=== PATIENT | male | born 1975 | race Caucasian/White ===

== ENCOUNTER 2020-12-26 15:36 | Inpatient (IN) | payer OTHER, SELFPAY ==
[2020-12-26] VITALS (9 sets, daily range): BP systolic 118–156; BP diastolic 75–98; PULSE 70–98; RESP 16–18; TEMP 36.6–36.9; O2SAT 90–98; BMI 36.4; BMI 34.1
--- NOTE | 2020-12-26 | ECG_ITS ---
APPROVED REPORT Exam: Resting ECG HR:85 bpm ECG Measurements Heart Rate 85 AXES WV 154 P 57 QRSd 100 QRS 12 QT 354 T 189 QTc 421 Conclusion Sinus rhythm with occasional premature ventricular complexes Possible Left atrial enlargement Possible Inferior infarct, age undetermined Possible Anterior infarct, age undetermined T wave abnormality, consider lateral ischemia Abnormal ECG Electronically signed by : Bakari Carl, 12/27/2020 22:13:15
--- NOTE | 2020-12-26 15:41 | XR_ITS ---
PROCEDURE INFORMATION: Exam: XR Chest Exam date and time: 12/26/2020 3:41 PM Age: 45 years old Clinical indication: Chest wall pain; Additional info: Chest pain TECHNIQUE: Imaging protocol: XR of the chest. Views: 1 view. COMPARISON: No relevant prior studies available. FINDINGS: Lungs: Old faint infiltrate at the right lung base. Pleural spaces: Unremarkable. No pleural effusion. No pneumothorax. Heart/Mediastinum: Mild cardiac enlargement. Bones/joints: Unremarkable. IMPRESSION: Cardiomegaly and faint right lung base infiltrate.
--- NOTE | 2020-12-26 15:42 | CT_ITS ---
PROCEDURE INFORMATION: Exam: CT Head Without Contrast Exam date and time: 12/26/2020 3:42 PM Age: 45 years old Clinical indication: Syncope and collapse TECHNIQUE: Imaging protocol: Computed tomography of the head without contrast. Radiation optimization: All CT scans at this facility use at least one of these dose optimization techniques: automated exposure control; mA and/or kV adjustment per patient size (includes targeted exams where dose is matched to clinical indication); or iterative reconstruction. COMPARISON: No relevant prior studies available. FINDINGS: Brain: Normal. No hemorrhage. Unremarkable white matter. No mass effect. Cerebral ventricles: No ventriculomegaly. Paranasal sinuses: Visualized sinuses are unremarkable. No fluid levels. Mastoid air cells: Visualized mastoid air cells are well aerated. Bones/joints: Unremarkable. No acute fracture. Soft tissues: Unremarkable. IMPRESSION: No acute intracranial abnormality.
--- NOTE | 2020-12-26 15:49 | HMH.EDGENADL ---
ED Disposition Clinical Impression: Abnormal electrocardiogram, Unstable angina Syncope Qualifiers: Syncope type: unspecified Qualified Code(s): R55 - Syncope and collapse Disposition: Admitted as Observation Condition on Discharge: Good Referrals: Provider,Referral, [Primary Care Provider] - - Critical Care Critical Care Time: No Attestation: On 12/26/20, the high probability of a clinically significant, sudden or life threatening deterioration of the following system(s) required my full and direct attention, intervention and personal management. The time I documented below is in addition to time spent performing reported procedures but includes the following listed in this critical care notation. Medical Decision Making - Young Inquiry Pt receiving controlled substance: No Vital Signs: 12/26/20 15:37 12/26/20 16:18 12/26/20 16:30 Temperature 98.5 F Temperature Source Oral Pulse Rate 86 92 H Pulse Rate [Radial] 98 H Respiratory Rate 18 18 18 Blood Pressure 143/98 H 133/89 Blood Pressure [Right Arm] 152/94 H Blood Pressure Mean 112 103 Blood Pressure Mean [Right Arm] 113 Blood Pressure Position [Right Arm] Sitting 02 Sat by Pulse Oximetry 98 94 L 94 L Oxygen Delivery Method Room Air - Lab Data Lab Results 12/26/20 15:35: WBC 8.9, RBC 4.89, Hgb 16.2, Hct 46.9, MCV 96.0 H, MCH 33.2 H, MCHC 34.6, RDW 13.3, Plt Count 211, MPV 9.0, Neut % (Auto) 67.5, Lymph % (Auto) 23.9, [place] % (Auto) 6.1, Eos % (Auto) 1.4, Baso % (Auto) 1.1, Neut # (Auto) 6.0, Lymph # (Auto) 2.1, [place] # (Auto) 0.5, Eos # (Auto) 0.1, Baso # (Auto) 0.1 12/26/20 15:35: Sodium 138, Potassium 3.8, Chloride 106, Carbon Dioxide 27, Anion Gap 8.8, BUN 11, Creatinine 0.90, Estimated Creat Clear 147, Estimated GFR 90, Est GFR ( Amer) 109, Glucose 116 H, Calcium 9.0, Troponin I 0.05 H Result diagrams: 12/26/20 15:35 12/26/20 15:35 Orders (Tests/Meds): ED MEDICATIONS Generic Name Dose Route Start Last Admin Trade Name Freq PRN Reason Stop Dose Admin Enoxaparin Sodium 100 mg 12/26/20 16:15 12/26/20 16:12 Enoxaparin 100mg/Ml Syringe SQ 01/25/21 16:14 100 mg Q12H PERRI Administration Nitroglycerin/Dextrose 250 mls @ 1.5 mls/hr 12/26/20 16:15 12/26/20 16:12 Nitroglycerin 50mg/250ml D5w IV 01/25/21 16:14 5 mcg/min .Q24H PERRI 1.5 mls/hr Administration Protocol 5 MCG/MIN Metoprolol Tartrate 25 mg 12/26/20 16:15 12/26/20 16:15 Metoprolol Tartrate 50mg Tablet PO 01/25/21 16:14 25 mg Q6H PERRI Administration Discontinued Medications Generic Name Dose Route Start Last Admin Trade Name Freq PRN Reason Stop Dose Admin Aspirin 324 mg 12/26/20 16:06 12/26/20 16:14 Aspirin 81mg Chewable Tablet PO 12/26/20 16:07 324 mg ONCE ONE Administration Clopidogrel Bisulfate 300 mg 12/26/20 16:06 12/26/20 16:11 Clopidogrel 300mg Tablet PO 12/26/20 16:07 300 mg ONCE ONE Administration ORDERS Category Date Time Status Consult to Cardiology [CONS] Routine Cons 12/26/20 16:07 Active Rapid PCR Covid and Flu A/B Stat Lab 12/26/20 17:06 Ordered Troponin I Q3H Lab 12/26/20 18:45 Ordered Troponin I Q3H Lab 12/26/20 21:45 Ordered - Radiology Data #1 Image(s): Chest Image Reviewed: Yes I have reviewed radiologist's interpretation PROCEDURE INFORMATION: Exam: XR Chest Exam date and time: 12/26/2020 3:41 PM Age: 45 years old Clinical indication: Chest wall pain; Additional info: Chest pain TECHNIQUE: Imaging protocol: XR of the chest. Views: 1 view. COMPARISON: No relevant prior studies available. FINDINGS: Lungs: Old faint infiltrate at the right lung base. Pleural spaces: Unremarkable. No pleural effusion. No pneumothorax. Heart/Mediastinum: Mild cardiac enlargement. Bones/joints: Unremarkable. IMPRESSION: Cardiomegaly and faint right lung base infiltrate.
[2020-12-26 16:08] LABS: Basophils # 0.1 K/mm3 (0-0.2); Basophils % 1.1 % (0.1-2.0); Eosinophils # 0.1 K/mm3 (0.0-0.4); Eosinophils % 1.4 % (0.1-12.0); Hematocrit 46.9 % (42.0-52.0); Hemoglobin 16.2 g/dL (14.1-18.0); Lymphocytes # 2.1 K/mm3 (0.7-4.5); Lymphocytes % 23.9 % (10-50); Mean Corpuscular HGB Conc 34.6 g/dL (31.8-35.4); Mean Corpuscular Hemoglobin 33.2 pg (27.0-31.2); Monocytes # 0.5 K/mm3 (0.1-1.0); Monocytes % 6.1 % (1.7-9.3); Neutrophils % 67.5 % (37.0-80.0); Platelet Count 211 K/mm3 (142-424); Red Blood Count 4.89 M/mm3 (4.60-6.20); Red Cell Distribution Width 13.3 % (11.5-17.5); White Blood Count 8.9 K/mm3 (4.8-10.8)
--- NOTE | 2020-12-26 16:13 | PC.NURSE ---
I TOOK PATIENT UP FOR A CT HEAD WO AND I WAS WHEELING THE PATIENT BACK DOWN TO THE ER, EDIN MCKINNEY FROM ER CALLED AND SAID WANTS TO CANCEL CT HEAD, BUT I HAD ALREADY SCANNED PATIENT
--- NOTE | 2020-12-26 16:20 | PC.NURSE ---
Dr Schuster spoke with Dr Mckinney.
--- NOTE | 2020-12-26 16:22 | PC.NURSE ---
Dr Catherine scott
[2020-12-26 16:26] LABS: Chloride 106 mmol/L (98-107); Sodium 138 mmol/L (136-145)
[2020-12-26 16:27] LABS: Potassium 3.8 mmoL/L (3.5-5.1)
[2020-12-26 16:29] LABS: Blood Urea Nitrogen 11 mg/dl (9-20); Creatinine Clearance Estimated 147 mL/min (50-200); Estimated Glomerular Filt Rate 90 ml/min (>60); GFR (African American) 109 ML/MIN (>60)
[2020-12-26 16:30] LABS: Anion Gap 8.8 mEq/L (5-15); Carbon Dioxide 27 mmol/L (22.0-30.0); Glucose 116 mg/dl (74-100)
[2020-12-26 16:42] LABS: Troponin I 0.05 ng/ml (0.00-0.034)
--- NOTE | 2020-12-26 16:57 | PC.NURSE ---
Dr Chris scott
[2020-12-26 17:21] LABS: Coronavirus 19, PCR Not Detected (NotDetected); Influenza A, PCR Not Detected (NotDetected); Influenza B, PCR Not Detected (NotDetected)
--- NOTE | 2020-12-26 19:16 | PC.NURSE ---
Notified RN that is receiving pt, Pat Brenner, that pt's swab has been resulted and ready for transfer to [facility].
[2020-12-26 19:31] LABS: Troponin I 0.06 ng/ml (0.00-0.034)
--- NOTE | 2020-12-26 19:33 | PC.NURSE ---
PT ARRIVED TO FLOOR VIA W/C FROM ED W/STAFF AT 1928
[2020-12-26 22:15] LABS: Troponin I 0.05 ng/ml (0.00-0.034)
--- NOTE | 2020-12-26 23:35 | PC.NURSE ---
2032- TITRATED NITRO GTT TO 5 MCG/MIN D/T SBP <160. NO CP OR SOA REPORTED. 2099- PT. PLACED ON 2L NC D/T O2 SAT 86-88% ON RA. PT. CURRENTLY 94-97% ON 2L NC.
[2020-12-27] VITALS (28 sets, daily range): BP systolic 102–129; BP diastolic 63–91; PULSE 64–80; RESP 16–20; TEMP 36.6–36.9; O2SAT 90–97; BMI 34.2
--- NOTE | 2020-12-27 | IR_ITS ---
APPROVED REPORT Patient Location: Inpatient PROCEDURES Left heart catheterization Left ventriculogram Selective coronary angiogram INDICATION Ejection fraction 30%, Syncope, Informed consent was obtained prior to the procedure. COMPLICATIONS None Estimated Blood Loss: Less than 10 mls TECHNIQUE One percent lidocaine used to anesthetize the right anterior aspect of the wrist. The right radial artery was accessed via the Seldinger technique. A 6 [place] sheath was placed in the right radial artery. 2.5 mg of verapamil, 800 mcg of nitroglycerin, 1mg Lidocaine and 5000 U Heparin were given through the arterial sheath. The trap catheter was also used to perform left heart catheterization, left ventriculogram and selective coronary angiogram. At the end of the procedure the sheath was removed good hemostasis was achieved using Traclet band, patient was transferred to the postop holding area in stable condition. ANGIOGRAPHIC RESULTS The left main artery Normal The left anterior descending artery Has proximal 50% stenosis and then gives rise to a moderate-sized first obtuse marginal artery which has proximal 30% stenosis. A large first septal audio production instructor is widely patent and branches distally. Immediately after the septal audio production instructor the mid LAD is occluded. Only at the apex does the LAD reconstitute however the filling is from a large Kugel collateral from a proximal dominant right coronary artery. There is no mid vessel visualization of the LAD from either antegrade or retrograde angiography/flow The circumflex artery Gives rise to 2 different ramus intermedius vessels. One ramus intermedius is a moderate size vessel and has proximal and mid vessel 40% stenoses. A second ramus intermedius also originates off the left main artery and has a superior and inferior branch both 2.25 mm in diameter. Both vessels have mild 20 and 30% atheromatous plaque. The true circumflex artery is nondominant and patent The right coronary artery Is a dominant vessel and occluded in the proximal segment immediately distal to a large atrial branch. This atrial branch sends a large Kugel collateral over to the distal LAD and provides some retrograde flow suggesting competitive flow from a left to left collateral. Distal to this large atrial branch the right coronary artery is occluded with the distal PDA being collateralized from this proximal right atrial branch and a right to right collateral network as well as the distal vessel being collateralized in a [id number] manner from a large first septal audio production instructor The [place] ventriculogram reveals Dilated ventricle with anterior apical hypokinesis and inferior apical hypokinesis. Estimated ejection fraction 30 to 35% The left ventricular end-diastolic pressure 20 mmHg IMPRESSION Occluded LAD immediately distal to the first diagonal artery and first septal audio production instructor with right to left collateralization from the right atrial branch and Kugel collateral supplying the distal LAD which has some degree of retrograde filling however only the distal LAD was visualized Occluded proximal dominant right coronary artery which fills via right to right collaterals from the proximal right atrial/Kugel collateral branch as well as left to right collaterals from the first septal audio production instructor off the LAD Regional wall motion abnormality with reduced ejection fraction Elevated LVEDP PLAN 1. The patency of the mid LAD cannot be determined at this time. Patient has a severe ischemic cardiomyopathy with an unusual collateral network as described above. Prior to offering coronary artery bypass surgery we need to determine if there is myocardial viability therefore I recommend pa
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
--- NOTE | 2020-12-27 07:46 | HMH.PHAVTE ---
[facility] Pharm[facility] VTE Monitoring - Patient Demographics Admission date: 12/26/20 Report Date: 12/27/20 Time: 07:46 Allergies/Adverse Reactions: Patient Allergies No Known Allergies Allergy (Unverified 05/29/17 15:12) Height: 1.68 m Weight: 96.644 kg Patient Problems: Current Active Problems Syncope (Acute) Abnormal electrocardiogram (Acute) Unstable angina (Acute) - VTE Risk Labs: VTE Related Lab Results Hgb 16.2 g/dL (14.1-18.0) 12/26/20 15:35 Hct 46.9 % (42.0-52.0) 12/26/20 15:35 Plt Count 211 K/mm3 (142-424) 12/26/20 15:35 BUN 11 mg/dl (9-20) 12/26/20 15:35 Creatinine 0.90 mg/dl (0.66-1.25) 12/26/20 15:35 Estimated Creat Clear 147 mL/min (50-200) 12/26/20 15:35 Was VTE Risk Assessment Performed: Yes VTE Score: 1 VTE Risk Level: Very Low Risk - Prophylaxis VTE Prophylaxis Ordered?: Yes Types of VTE Prophylaxis: TEDS Knee High Location of Applied Device: Bilateral Lower Extremeties
--- NOTE | 2020-12-27 07:48 | HMH.PHAINT ---
MEDICATION RECONCILIATION COMPLETED ON PATIENT USING EXTERNAL FILL HISTORY FROM PHARMACY. -GRANT SUAZO, SHREYAD
--- NOTE | 2020-12-27 08:37 | CA_ITS ---
APPROVED REPORT EXAM: Comprehensive 2D, Doppler, and color-flow Echocardiogram Senior Solutions Architect: Thelma Paul RVT Ht: 5 ft 6 in Wt: 213lbs BSA: 2.05 BP: 128/86 mmHg Indications: NSTEMI,CP,SMOKER,SYNCOPE,GERD 2D Dimensions LVOT 2.40 cm (M/F) 1.5-2.5 LA Volume 63.10 mL LA Volume Index 30.78 mL/m2 (M/F) 16-34 M-Mode Dimensions RVDd 2.13 cm (0.9-2.6) LA Diam 4.58 cm (1.9-4.0) LVDd 7.03 cm (3.5-5.7) Ao Diam 2.64 cm (2.0-3.7) LVDs 5.18 cm (3.5-5.7) IVSd 1.08 cm (0.6-1.1) PWd 0.88 cm (0.6-1.1) EF (Teich) 32.00% FS 26.30% EDV (Teich) 257.90 mL TAPSE 2.04 (<1.7) ESV (Teich) 128.40 mL LV Diastology E Decel Time 150.00 (160-240 msec) E/A Ratio 2.1 MED E' 4.40 (< 7 cm/sec) E'/MED E' Ratio 32.52 (>14) LAT E' 4.80 (<10 cm/sec) E/LAT E' Ratio 29.81 (>14) Aortic Valve AI PHT 597.00 ms AO Peak GR. 4.00 mmHg Mitral Valve MV E Max Byron. 143.00 (40-130 cm/s) MV A Velocity 68.00 (40-130 cm/s) E/A Ratio 2.11 MV Decel. Time 150.00 (160-240 ms) MV PHT 44.00 ms Pulmonary Valve PV Peak Velocity 71.00 (50-150 cm/s) Tricuspid Valve TR P. Velocity 281.00 cm/s RAP Estimate 10.00 mmHg RVSP 41.50 mmHg Left Ventricle Left atrium is moderately enlarged, left ventricle is moderately dilated, there is mild concentric left ventricular hypertrophy, there is severely reduced left ventricular systolic function, visually estimated ejection fraction 25%, left ventricle is globally hypokinetic, grade 2 diastolic dysfunction seen with tissue Doppler evidence of raise left atrial pressure. Right Ventricle Right atrium and right ventricle are normal size and contractility. Aortic Valve Aortic valve is minimally thickened and fibrosed, there is no aortic stenosis, there is trace aortic insufficiency. Mitral Valve Mitral valve grossly normal, there is moderate mitral regurgitation. Tricuspid Valve Tricuspid valve grossly normal, there is mild tricuspid regurgitation, tricuspid regurgitation jet velocity is inadequate for calculation of the right ventricular systolic pressure. Pulmonic Valve Pulmonic valve is poorly visualized. Great Vessels Aortic root is normal size. Pericardium No significant pericardial effusion noted. Conclusion 1. Moderately enlarged left atrium, dilated left ventricle, severely reduced left ventricular systolic function, visually estimated ejection fraction approximately 25%, left ventricle is globally hypokinetic, grade 2 diastolic dysfunction seen with tissue Doppler evidence of raise left atrial pressure. 2. Moderate mitral and mild tricuspid regurgitation. 3. Inferior vena cava is normal size with normal inspiratory collapse. 4. No significant pericardial effusion noted. Electronically signed by : Bryno Kidd, 12/27/2020 11:41:51
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
[2020-12-27 10:13] LABS: Alanine Aminotransferase 26 U/L (12-78); Albumin Level 4.1 g/dl (3.5-5.0); Alkaline Phosphatase 78 U/L (38-126); Aspartate Amino Transferase 36 U/L (17-59); Bilirubin,Direct 0.5 mg/dl (0.0-0.4); Bilirubin,Indirect 0.1 mg/dL (0.0-0.9); Bilirubin,Total 0.6 mg/dl (0.2-1.3); Bilirubin,Unconjugated 0.2 mg/dL (0.0-1.1); Chol/HDL Ratio 8.6 (1-3.5); Cholesterol 233 mg/dl (140-200); HDL Cholesterol 27 mg/dl (40-60); Total Protein,Serum 7.5 g/dl (6.3-8.2); Triglycerides 257 mg/dl (30-150); VLDL Cholesterol 51 mg/dL (0-40)
[2020-12-27 10:24] LABS: Direct LDL Cholesterol 152.36 mg/dL (100-129)
--- NOTE | 2020-12-27 13:35 | PC.NURSE ---
late entry: about 1115 patient agitated and stated he wanted to leave ama. educated on risks. asked patient to stay until we could speak with the drJuan about 1150 joselyn at bedside explaining to patient risks of leaving at this time. ordered 2mg ativan once for patient. patient agreeable to stay for heart cath.
--- NOTE | 2020-12-27 15:00 | PC.NURSE ---
verified with cathode builder to NOT restrart the nitro drip
--- NOTE | 2020-12-27 16:05 | PC.NURSE ---
patient has been resting since return from laboratory scientist. no complaints. on 2l room air noted to be about 88-89%. srikanth sarmiento aprn educated patient on findings and need for life vest. verified with her to stop the metoprolol and only do coreg on the patient. radial site no bleeding noted at this time. report given to thiago davis.
--- NOTE | 2020-12-27 18:44 | PC.NURSE ---
room air sats 93% return pt to 2L n/c
[2020-12-28] VITALS (8 sets, daily range): BP systolic 91–111; BP diastolic 55–74; PULSE 58–80; RESP 18–20; TEMP 36.3–36.9; O2SAT 90–95; BMI 33.0
--- NOTE | 2020-12-28 00:33 | PC.NURSE ---
Patient is A&Ox4. No pain reported to RN. Patient was on 2L of oxygen at beginning of shift but was titrated to room air and remained around 92-94%. Patient advanced to cardiac diet and tolerated diet well. Radial cath site dressing is clean, dry and intact. Education about restrictions and care for cath site provided to patient by RN. VSS. NO further concerns voiced to RN.
[2020-12-28 06:34] LABS: Anion Gap 9.5 mEq/L (5-15); Blood Urea Nitrogen 12 mg/dl (9-20); Calcium 8.9 mg/dl (8.4-10.2); Carbon Dioxide 31 mmol/L (22.0-30.0); Chloride 100 mmol/L (98-107); Creatinine Clearance Estimated 120 mL/min (50-200); Estimated Glomerular Filt Rate 80 ml/min (>60); GFR (African American) 97 ML/MIN (>60); Glucose 106 mg/dl (74-100); Potassium 4.5 mmoL/L (3.5-5.1); Sodium 136 mmol/L (136-145)
--- NOTE | 2020-12-28 07:07 | P.PN_ITS ---
Internal Medicine - PN: Subj *Date: 12/28/20 *Time: 07:07 Interval history: Patient underwent left heart catheterization yesterday. Please refer to cardiac cath report for findings. Patient has become a rather complex case and plan is in place for patient to get LifeVest due to cardiomyopathy. He has follow-up appointment already arranged with Dr. Walton at for anticipated cardiac MRI. Patient denies any further chest pain overnight. Exam Vital signs and Labs for Last 24 Hours: Temp Pulse Resp BP Pulse Ox 98.0 F 78 20 111/65 91 L 12/28/20 06:00 12/28/20 06:00 12/28/20 04:00 12/28/20 06:00 12/28/20 06:00 Laboratory Results - last 24 hr 12/27/20 09:44: Total Bilirubin 0.6, Direct Bilirubin 0.5 H, Conjugated Bilirubin 0.0, Indirect Bilirubin 0.1, Unconjugated Bilirubin 0.2, AST 36, ALT 26, Alkaline Phosphatase 78, Total Protein 7.5, Albumin 4.1, Triglycerides 257 H , Cholesterol 233 H, LDL Cholesterol Direct 152.36 H, VLDL Cholesterol 51 H, HDL Cholesterol 27 L, Cholesterol/HDL Ratio 8.6 H 12/28/20 05:51: Sodium 136, Potassium 4.5, Chloride 100, Carbon Dioxide 31 H, Anion Gap 9.5, BUN 12, Creatinine 1.00, Estimated Creat Clear 120, Estimated GFR 80, Est GFR ( Amer) 97, Glucose 106 H, Calcium 8.9 I & O for Last 24 hours: Intake & Output 12/25/20 12/26/20 12/27/20 12/28/20 11:59 11:59 11:59 11:59 Intake Total 0 / 0 Output Total 1650 / 1650 Balance -1650 / -1650 Weight 213 lb 1 oz 205 lb 6 oz - Constitutional no acute distress - *Routine Respiratory Exam Present: CTA bilaterally - *Routine Cardiovascular Exam Present: RRR Assessment and Plan (1) Non-STEMI (non-ST elevated myocardial infarction) Status: Acute Category: Medical Code(s): I21.4 - Non-ST elevation (NSTEMI) myocardial infarction (2) Syncope Status: Acute Qualifiers: Syncope type: unspecified Qualified Code(s): R55 - Syncope and collapse Category: Medical Code(s): R55 - Syncope and collapse (3) Unstable angina Status: Acute Category: Medical Code(s): I20.0 - Unstable angina (4) Elevated troponin Status: Acute Category: Medical Code(s): R77.8 - Other specified abnormalities of plasma proteins (5) Abnormal electrocardiogram Status: Acute Category: Medical Code(s): R94.31 - Abnormal electrocardiogram [ECG] [EKG] (6) Tobacco user Status: Chronic Category: Social Hx Code(s): Z72.0 - Tobacco use (7) SOB (shortness of breath) Status: Acute Category: Medical Code(s): R06.02 - Shortness of breath - Assessment and plan all Dx Assessment and Plan for all problems:: 1. Once patient's LifeVest has been arranged patient may be discharged. Prescriptions have been sent to patient's pharmacy. 2. Follow-up with [facility] in 2 days. Follow-up with Dr. Mckinney's office in 1 week. Follow-up with ct in 2 weeks.
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
--- NOTE | 2020-12-28 13:12 | HMH.PHAINT ---
DISCHARGE MEDICATION COUNSELING COMPLETE. DISCUSSED ADDITION OF SEVERAL MEDICATIONS AND POSSIBLE EFFECTS ON BLOOD PRESSURE. DISCUSSED BRUISING POSSIBILITY WITH ASA. PATIENT AND WERE RECEPTIVE TO INFORMATION PROVIDED BUT ENDORSED NO QUESTIONS AT THIS TIME.
--- NOTE | 2020-12-28 13:40 | PC.NURSE ---
spoke with A Yeyo RUIZ at 1205. LifeVest oracle application consultant has delayed consultation time from 1100 to 1700. Per Elizabeth, Dr Mckinney is ok with the pt being discharged home with the LifeVest oracle application consultant coming to his home at approx 1800 this evening for his fitting. [facility], address and telephone number were verified on the phone with the pt and the rep. dr Perez notified at 1210, notified of changes in plan and that Cardiology was ok with DC. Per Dr Perez, ok to enter the discharge order on his behalf.
== END 2020-12-28 13:25 | disposition home or self-care (01) | DRG 281 ==
LOC: ER 16:57 → 2ND 17:43
PROVIDERS: Internal Medicine; Nurse Practitioner Family; Admitting Provider Family Medicine; Emergency Provider Emergency Medicine; Visit Provider Family Medicine
DX: I21.4 Non-ST elevation (NSTEMI) myocardial infarction (principal); I50.20 Unspecified systolic (congestive) heart failure; I25.110 Atherosclerotic heart disease of native coronary artery with unstable angina pectoris; R55 Syncope and collapse; F17.210 Nicotine dependence, cigarettes, uncomplicated; K21.9 Gastro-esophageal reflux disease without esophagitis; I25.5 Ischemic cardiomyopathy; Z20.822 Contact with and (suspected) exposure to COVID-19
CPT/HCPCS: 36415; 70450; 71045; 80048; 80061; 80076; 84484; 85025; 93005; 93306; 93458; 96374; 96375; 99152; 99284; C1725; C1769; J1644; Q9967; U0003

== ENCOUNTER → 2021-01-03 15:49 | Outpatient (CLI) | payer OTHER, SELFPAY ==
[2021-01-03 18:02] LABS: Chloride 106 mmol/L (98-107); Potassium 4.7 mmoL/L (3.5-5.1); Sodium 141 mmol/L (136-145)
[2021-01-03 18:05] LABS: Anion Gap 11.7 mEq/L (5-15); Blood Urea Nitrogen 14 mg/dl (9-20); Calcium 9.2 mg/dl (8.4-10.2); Carbon Dioxide 28 mmol/L (22.0-30.0); Estimated Glomerular Filt Rate 90 ml/min (>60); GFR (African American) 109 ML/MIN (>60); Glucose 96 mg/dl (74-100)
== END ==
PROVIDERS: Visit Provider Physician Assistant
DX: I25.10 Atherosclerotic heart disease of native coronary artery without angina pectoris (principal); I25.5 Ischemic cardiomyopathy; I50.20 Unspecified systolic (congestive) heart failure
CPT/HCPCS: 36415; 80048

== ENCOUNTER → 2021-01-31 15:15 | Outpatient (CLI) | payer OTHER, SELFPAY | PROVIDERS: PCP Family Medicine; Visit Provider Family Medicine | DX: R40.0 Somnolence; G47.33 Obstructive sleep apnea (adult) (pediatric) | CPT/HCPCS: 95806 ==

== ENCOUNTER → 2021-02-17 08:51 | Outpatient (CLI) | payer OTHER, SELFPAY | PROVIDERS: Visit Provider Thoracic Surgery (Cardiothoracic Vascular Surgery) | DX: Z01.812 Encounter for preprocedural laboratory examination (principal); Z11.52 Encounter for screening for COVID-19; I25.10 Atherosclerotic heart disease of native coronary artery without angina pectoris | CPT/HCPCS: U0003 ==

== ENCOUNTER → 2021-03-24 09:55 | Outpatient (CLI) | payer OTHER, SELFPAY ==
[2021-03-24 10:57] LABS: Anion Gap 10.7 mEq/L (5-15); Blood Urea Nitrogen 9 mg/dl (9-20); Calcium 9.3 mg/dl (8.4-10.2); Carbon Dioxide 31 mmol/L (22.0-30.0); Chloride 103 mmol/L (98-107); Estimated Glomerular Filt Rate 121 ml/min (>60); GFR (African American) 146 ML/MIN (>60); Glucose 147 mg/dl (74-100); Potassium 4.7 mmoL/L (3.5-5.1); Sodium 140 mmol/L (136-145)
== END ==
PROVIDERS: Visit Provider Nurse Practitioner Family
DX: I48.0 Paroxysmal atrial fibrillation (principal); I25.5 Ischemic cardiomyopathy
CPT/HCPCS: 36415; 80048

== ENCOUNTER → 2021-05-24 13:34 | Outpatient (CLI) | payer OTHER, SELFPAY ==
--- NOTE | 2021-05-24 13:35 | CA_ITS ---
APPROVED REPORT EXAM: Comprehensive 2D, Doppler, and color-flow Echocardiogram Metallurgy Laboratory Technician: Prema Pacheco, YANET, RVS Ht: 5 ft 6 in Wt: 219lbs BSA: 2.08 BP: 138/84 mmHg Indications: CM last EF=25-30%, CABG, CAD, AFIB, Lifevest 2D Dimensions Aortic Root 2.83 cm LVOT 4.32 cm (M/F) 1.5-2.5 M-Mode Dimensions RVDd 3.05 cm (0.9-2.6) LA Diam 4.16 cm (1.9-4.0) LVDd 5.87 cm (3.5-5.7) Ao Diam 3.27 cm (2.0-3.7) LVDs 4.50 cm (3.5-5.7) IVSd 1.29 cm (0.6-1.1) PWd 1.29 cm (0.6-1.1) EF (Teich) 46.00% EPSs 1.82 cm FS 23.30% EDV (Teich) 171.20 mL TAPSE 0.94 (<1.7) ESV (Teich) 92.40 mL LV Diastology E Decel Time 240.00 (160-240 msec) E/A Ratio 0.76 MED E' 4.00 (< 7 cm/sec) MED A' 5.60 cm/s E'/MED E' Ratio 22.07 (>14) LAT E' 8.60 (<10 cm/sec) LAT A' 5.40 cm/s E/LAT E' Ratio 10.27 (>14) Aortic Valve LVOT Max 108.00 (70-110 cm/s) LVOT VTI 20.87 cm AoV Peak Byron. 135.00 (50-130 cm/s) AO Peak GR. 7.30 mmHg AO Mean GR. 3.60 (<5 mmHg) AO VTI 27.44 (18-25 cm) ALESHIA (VTI) 11.15 (2.5-4.5 cm2) Mitral Valve MV E Max Byron. 88.00 (40-130 cm/s) MV A Velocity 117.00 (40-130 cm/s) E/A Ratio 0.76 MV Decel. Time 240.00 (160-240 ms) MV Mean Gr. 2.20 (<2mmHg) MV PHT 70.00 ms Pulmonary Valve PV Peak Velocity 112.00 (50-150 cm/s) GA End VMAX 161.00 cm/s Tricuspid Valve TR P. Velocity 162.00 cm/s RAP Estimate 10.00 mmHg RVSP 20.50 mmHg Left Ventricle Left atrium is mildly enlarged, left ventricle is mildly dilated, severe reduced left ventricular systolic function, visually is estimated ejection fraction 30%, left ventricle is globally hypokinetic, there is abnormal septal motion. Grade 1 diastolic dysfunction seen without tissue Doppler evidence of raise left atrial pressure. Right Ventricle Right atrium and right ventricle are normal size and contractility. Aortic Valve Aortic valve is minimally thickened and fibrosed, there is no aortic stenosis or aortic insufficiency. Mitral Valve Mitral valve is grossly normal, there is trace mitral regurgitation. Tricuspid Valve Tricuspid valve grossly normal, there is trace tricuspid regurgitation, tricuspid regurgitation jet velocity is inadequate for calculation of the right ventricular systolic pressure. Pulmonic Valve Pulmonic valve is poorly visualized. Great Vessels Aortic root is normal size. Inferior vena cava is poorly visualized. Pericardium No significant pericardial effusion noted. Conclusion #1. Technically difficult study because of the patient factors and poor acoustic windows. Left atrium is mildly enlarged, left ventricle is mildly dilated, severe reduced left ventricular systolic function, visually estimated ejection fraction 30%, there is abnormal septal motion. Grade 1 diastolic dysfunction seen without tissue Doppler evidence of raise left atrial pressure. #2. Trace mitral and tricuspid regurgitation. #3. No significant pericardial effusion noted. Electronically signed by : Bryon Kidd MD 05/24/2021 19:43:22
== END ==
PROVIDERS: PCP Family Medicine; Visit Provider Nurse Practitioner Family
DX: I50.21 Acute systolic (congestive) heart failure (principal); I48.0 Paroxysmal atrial fibrillation; I25.5 Ischemic cardiomyopathy; I25.810 Atherosclerosis of coronary artery bypass graft(s) without angina pectoris; E78.2 Mixed hyperlipidemia; I51.9 Heart disease, unspecified; R94.31 Abnormal electrocardiogram [ECG] [EKG]; Z72.0 Tobacco use; Z95.1 Presence of aortocoronary bypass graft
CPT/HCPCS: 93306

== ENCOUNTER → 2021-05-31 12:11 | Outpatient (CLI) | payer OTHER, SELFPAY ==
[2021-05-31 12:32] LABS: Basophils # 0.1 K/mm3 (0-0.2); Eosinophils # 0.2 K/mm3 (0.0-0.4); Eosinophils % 2.8 % (0.1-12.0); Hematocrit 47.6 % (42.0-52.0); Hemoglobin 16.4 g/dL (14.1-18.0); Lymphocytes # 1.5 K/mm3 (0.7-4.5); Lymphocytes % 27.6 % (10-50); Mean Corpuscular HGB Conc 34.5 g/dL (31.8-35.4); Mean Corpuscular Volume 98.4 fl (80-94); Mean Platelet Volume 9.2 fl (7.4-10.4); Monocytes # 0.5 K/mm3 (0.1-1.0); Monocytes % 9.1 % (1.7-9.3); Neutrophils # 3.1 K/mm3 (1.8-7.8); Neutrophils % 59.5 % (37.0-80.0); Platelet Count 182 K/mm3 (142-424); Red Blood Count 4.84 M/mm3 (4.60-6.20); Red Cell Distribution Width 12.7 % (11.5-17.5); White Blood Count 5.3 K/mm3 (4.8-10.8)
[2021-05-31 13:12] LABS: Chloride 104 mmol/L (98-107)
[2021-05-31 13:13] LABS: Potassium 4.5 mmoL/L (3.5-5.1); Sodium 140 mmol/L (136-145)
[2021-05-31 13:16] LABS: Anion Gap 11.5 mEq/L (5-15); Blood Urea Nitrogen 14 mg/dl (9-20); Carbon Dioxide 29 mmol/L (22.0-30.0); Estimated Glomerular Filt Rate 103 ml/min (>60); GFR (African American) 125 ML/MIN (>60); Glucose 113 mg/dl (74-100)
== END ==
PROVIDERS: Visit Provider Physician Assistant
DX: Z01.812 Encounter for preprocedural laboratory examination (principal); Z11.52 Encounter for screening for COVID-19; I25.810 Atherosclerosis of coronary artery bypass graft(s) without angina pectoris; I50.21 Acute systolic (congestive) heart failure; I51.9 Heart disease, unspecified; I25.5 Ischemic cardiomyopathy; Z95.1 Presence of aortocoronary bypass graft
CPT/HCPCS: 36415; 80048; 85025; C9803; U0003; U0005

== ENCOUNTER 2021-06-02 09:20 | Day surgery (SDC) | payer OTHER, SELFPAY ==
--- NOTE | 2021-06-02 | IR_ITS ---
APPROVED REPORT Patient Location: Outpatient Automotive Technician: DEMI Borrero RT (R) PROCEDURES 1. Pocket formation for AICD. 2. Placement of atrial sensing and pacing coil into the right atrial appendage. 3. Placement of a ventricular sensing, pacing and shocking coil in the right ventricular apex. 4. Permanent AICD placement. INDICATION Systolic Congestive Heart Failure, ejection < 35%, [place] Heart Assoication Class 3 Congestive Heart Failure Informed consent was obtained prior to the procedure. COMPLICATIONS None Estimated Blood Loss: Less than 10 mls TECHNIQUE 1% Lidocaine with epinephrine used to anesthetized the left anterior aspect of the chest. Scalpel was used to make the initial cutaneous incision while electrocautery was used to dissect down tinto the fascia. The fascia was lifted off the pectoralis muscle and digitally manipulated creating a pocket for the defibrillator. The patient was then placed in Trendelenburg position and the subclavian vein was accessed 2 times via the Selinger technique. A 8 Burkinan sheath was placed under fluoroscopic guidance into the subclavian vein. The dilator was removed from the sheath. Using fluoroscopic guidance, the ventricular lead was placed into the right ventricular apex, screwed and secured into place. Electronic interrogation proved acceptable thresholds and voltage within the lead. Using 3-0 silk, the ventricular lead was then secured into place and sheath peeled away. A 6 Burkinan fresh sheath and dilator was placed over the existing wire. Using fluoroscopic guidance, the atrial lead was then placed into the right atrial appendage and screwed and secured in place. Electrical interrogation demonstrated acceptable thresholds and voltage number. The atrial lead was then secured into place using 3-0 silk and sheath peeled away. 1 gram of Ancef was used to flush the pocket. All 3 leads were connected to generator and tested via computer. The defibrillator then secured to the fascia. Monocryl was used to close the subcutaneous layers while su were used to close the cutaneous layer. A pressure dressing was placed and the patient was transferred to the postop holding area in stable condition for postoperative care. INTERROGATION Generator Model number: [address], D233 Generator Serial number: [id number] Atrial lead model number: INGEVITY+ 52CM, 7841 Atrial lead serial number: [id number] P-wave: 2.5mV Threshold: 6000 ohms Right Ventricular lead model number: INGEVITY+ 59CM, 0675 Right Ventricular lead serial number: [id number] R-wave: 20.0mV Threshold: 6500 ohms Pacing Parameters: Mode: DDD Base/Max Track: 60/130 ppm ICD Rate Cutoffs: VT-1: 180 bpm, 5.0 sec., ATP, 41JX6 VT-2: 160 bpm, 10.0 sec., Monitor only VF: 200 bpm, 2.5 sec., Quick convert, 41Jx8 No diaphragmatic stimulation at 10 volts. IMPRESSION 1. Successful pocket formation for AICD. 2. Successful placement of atrial sensing and pacing coil into the right atrial appendage. 3. Successful placement of a ventricular sensing, pacing and shocking coil in the right ventricular apex. 4. Successful permanent AICD placement. PLAN 1. Post op wound care, follow up office visit Electronically signed by : Chester Mckinney MD 06/06/2021 09:49:28
[2021-06-02 09:23] VITALS: BMI 358.9
[2021-06-02 09:32] VITALS: BP 144/81; PULSE 109; PULSE 66; RESP 16; TEMP 36.9; O2SAT 93
[2021-06-02 11:47] VITALS: BP 132/58; PULSE 105; PULSE 54; RESP 16; O2SAT 99
--- NOTE | 2021-06-02 11:53 | XR_ITS ---
PROCEDURE INFORMATION: Exam: XR Chest Exam date and time: 06/02/2021 11:53 AM Age: 46 years old Clinical indication: Device placement; Cardiac pacemaker placement or adjustment; Additional info: Confirm pacemaker/aid placement TECHNIQUE: Imaging protocol: XR of the chest. Views: 1 view. COMPARISON: CR XR CHEST PORTABLE 12/26/2020 3:48 PM FINDINGS: Tubes, catheters and devices: Satisfactory positioning of AICD. Lungs: Trace right basilar airspace disease. Pleural spaces: No pneumothorax or pleural effusion. Heart/Mediastinum: No cardiomegaly. Bones/joints: Unremarkable. IMPRESSION: No postprocedural complication following AICD placement.
[2021-06-02 12:00] VITALS: BP 137/72; PULSE 98; RESP 16; O2SAT 98
[2021-06-02 12:15] VITALS: BP 146/75; PULSE 96; RESP 16; O2SAT 94
[2021-06-02 12:30] VITALS: BP 116/77; PULSE 89; RESP 16; O2SAT 97
[2021-06-02 13:14] VITALS: BP 124/78; PULSE 82; RESP 16; O2SAT 97
== END 2021-06-02 13:25 | disposition home or self-care (01) ==
LOC: CATHLAB 09:21
PROVIDERS: PCP Family Medicine; Visit Provider Internal Medicine
PROC: 0JH608Z Insertion of Defibrillator Generator into Chest Subcutaneous Tissue and Fascia, Open Approach (ICD-10-PCS; CPT 33249; principal; 2021-06-02 07:00)
DX: I50.21 Acute systolic (congestive) heart failure (principal); Z79.01 Long term (current) use of anticoagulants; I25.810 Atherosclerosis of coronary artery bypass graft(s) without angina pectoris; I25.10 Atherosclerotic heart disease of native coronary artery without angina pectoris; I25.5 Ischemic cardiomyopathy; Z87.891 Personal history of nicotine dependence; Z79.899 Other long term (current) drug therapy; I48.91 Unspecified atrial fibrillation
CPT/HCPCS: 33249; 71045; 99152; 99153; C1721; C1895; C1898

== ENCOUNTER → 2022-11-02 07:02 | Outpatient (CLI) | payer OTHER, SELFPAY ==
[2022-11-02 09:48] LABS: Basophils # 0.1 K/mm3 (0-0.2); Eosinophils # 0.2 K/mm3 (0.0-0.4); Eosinophils % 2.4 % (0.1-12.0); Hematocrit 47.1 % (42.0-52.0); Hemoglobin 15.9 g/dL (14.1-18.0); Lymphocytes # 2.5 K/mm3 (0.7-4.5); Lymphocytes % 32.6 % (10-50); Mean Corpuscular HGB Conc 33.8 g/dL (31.8-35.4); Mean Corpuscular Hemoglobin 34.3 pg (27.0-31.2); Mean Corpuscular Volume 101.6 fl (80-94); Monocytes # 0.5 K/mm3 (0.1-1.0); Monocytes % 7.1 % (1.7-9.3); Neutrophils # 4.3 K/mm3 (1.8-7.8); Platelet Count 202 K/mm3 (142-424); Red Blood Count 4.63 M/mm3 (4.60-6.20); Red Cell Distribution Width 13.4 % (11.5-17.5); White Blood Count 7.6 K/mm3 (4.8-10.8)
[2022-11-02 10:10] LABS: Alanine Aminotransferase 33 U/L (12-78); Albumin Level 3.9 g/dl (3.5-5.0); Alkaline Phosphatase 80 U/L (38-126); Anion Gap 17.1 mEq/L (5-15); Aspartate Amino Transferase 32 U/L (17-59); Bilirubin,Indirect 0.3 mg/dL (0.0-0.9); Bilirubin,Total 0.3 mg/dl (0.2-1.3); Bilirubin,Unconjugated 0.4 mg/dL (0.0-1.1); Blood Urea Nitrogen 14 mg/dl (9-20); Carbon Dioxide 23 mmol/L (22.0-30.0); Chloride 103 mmol/L (98-107); Chol/HDL Ratio 9.9 (1-3.5); Cholesterol 188 mg/dl (140-200); Estimated Glomerular Filt Rate 103 ml/min (>60); GFR (African American) 124 ML/MIN (>60); Glucose 171 mg/dl (74-100); HDL Cholesterol 19 mg/dl (40-60); Magnesium 1.9 mg/dl (1.6-2.3); Potassium 4.1 mmoL/L (3.5-5.1); Sodium 139 mmol/L (136-145); Total Protein,Serum 6.9 g/dl (6.3-8.2)
[2022-11-02 10:17] LABS: Triglycerides 450 mg/dl (30-150)
[2022-11-02 10:21] LABS: Direct LDL Cholesterol 105.64 mg/dL (100-129)
[2022-11-02 10:40] LABS: Thyroid Stimulating Hormone 3.15 uIU/mL (0.465-4.68)
[2022-11-02 15:08] LABS: Free T4 (Free Thyroxine) 0.82 ng/dl (0.78-2.19)
== END ==
PROVIDERS: PCP Nurse Practitioner Family; Visit Provider Physician Assistant
DX: I25.810 Atherosclerosis of coronary artery bypass graft(s) without angina pectoris (principal); I25.5 Ischemic cardiomyopathy; I48.0 Paroxysmal atrial fibrillation; I50.22 Chronic systolic (congestive) heart failure; E78.2 Mixed hyperlipidemia; Z95.1 Presence of aortocoronary bypass graft
CPT/HCPCS: 36415; 80048; 80061; 80076; 83735; 84439; 84443; 85025

== ENCOUNTER → 2022-11-20 09:20 | Outpatient (CLI) | payer OTHER, SELFPAY | PROVIDERS: PCP Family Medicine; Visit Provider Physician Assistant | DX: I50.22 Chronic systolic (congestive) heart failure (principal); I25.5 Ischemic cardiomyopathy; I25.810 Atherosclerosis of coronary artery bypass graft(s) without angina pectoris; I48.0 Paroxysmal atrial fibrillation; E78.2 Mixed hyperlipidemia; Z95.1 Presence of aortocoronary bypass graft | CPT/HCPCS: 93306 ==

== ENCOUNTER 2024-10-30 07:46 | Outpatient (CLI) | payer OTHER, SELFPAY ==
--- NOTE | 2024-10-30 | US_ITS ---
FINAL REPORT CLINICAL HISTORY: HTN, HLD, smoker, hx CABG, CAD. Patient states his right lower extremity has been hurting x 1 month. Denies trauma. States with walking the right lower extremity will get tight and feel like a charley horse. FINDINGS: LOWER EXTREMITY SEGMENTAL PRESSURE MEASUREMENTS Pressure indices are as follows: RIGHT LOWER EXTREMITY: Lower thigh: 0.65 Calf: 0.60 Ankle, posterior tibial artery: 0.66 Ankle, dorsalis pedis: 0.62 Toe: 0.49 OZZY: 0.66 LEFT LOWER EXTREMITY: Lower thigh: 0.75 Calf: 0.64 Ankle, posterior tibial artery: 0.75 Ankle, dorsalis pedis: 0.67 Toe: 0.61 OZZY: 0.75 IMPRESSION: Abnormal findings, moderate bilateral PVD. Consider CTA. Based on values, occlusive disease is likely within the iliofemoral distribution. Reviewed, Interpreted and Dictated by Bernardino Ann MD Transcribed by Cathi Santiago Authenticated and [facility]
--- NOTE | 2024-10-30 | CA_ITS ---
FINAL REPORT TECHNIQUE: Compression vieyra scale and Doppler evaluation CLINICAL HISTORY: HTN, HLD, Smoker, hx CABG, CAD. Patient states he's had right leg pain and edema x 1 month. Denies trauma. States when he's walking his right leg will get tight and feel like a charley horse. FINDINGS: Femoral and popliteal veins show normal compressibility and flow. Visualized portion of the calf veins are patent by Doppler exam. IMPRESSION: No evidence of right lower extremity deep venous thrombosis Reviewed, Interpreted and Dictated by Bernardino Ann MD Transcribed by Cathi Santiago Authenticated and [facility]
== END 2024-10-30 23:59 | disposition home or self-care (01) ==
LOC: RT 07:46
PROVIDERS: PCP Family Medicine; Visit Provider Nurse Practitioner
DX: I73.9 Peripheral vascular disease, unspecified (principal); I10 Essential (primary) hypertension; E78.5 Hyperlipidemia, unspecified; F17.200 Nicotine dependence, unspecified, uncomplicated; I25.10 Atherosclerotic heart disease of native coronary artery without angina pectoris; Z95.1 Presence of aortocoronary bypass graft
CPT/HCPCS: 93923; 93971

== ENCOUNTER 2024-11-20 08:00 | Outpatient (CLI) | payer OTHER, SELFPAY ==
--- NOTE | 2024-11-20 08:00 | CA_ITS ---
APPROVED REPORT EXAM: Comprehensive 2D, Doppler, and color-flow Echocardiogram Vacuum Filter Operator: Thelma Paul RVT Ht: 5 ft 6 in Wt: 217lbs BSA: 2.07 BP: 132/76 mmHg Indications: HFrEF,EDEMA,FATIGUE M-Mode Dimensions RVDd 3.39 cm (0.9-2.6) LA Diam 4.24 cm (1.9-4.0) LVDd 6.47 cm (3.5-5.7) LVDs 5.38 cm (3.5-5.7) IVSd 0.78 cm (0.6-1.1) PWd 0.90 cm (0.6-1.1) EF (Teich) 34.40% FS 16.80% EDV (Teich) 213.70 mL ESV (Teich) 140.10 mL LV Diastology E Decel Time 203 (160-240 msec) E/A Ratio 1.0 Aortic Valve ALESHIA Index 1.31 cm2/m2 AoV Peak Byron. 106.0 (50-130 cm/s) AO Peak GR. 4.50 mmHg AO Mean GR. 2.90 (<5 mmHg) AO VTI 25.0 (18-25 cm) ALESHIA (VTI) 2.77 (2.5-4.5 cm2) Mitral Valve MV E Max Byron. 95.0 (40-130 cm/s) MV A Velocity 97.0 (40-130 cm/s) E/A Ratio 0.98 MV PHT 60.0 ms Pulmonary Valve PV Peak Velocity 111.0 (50-150 cm/s) Tricuspid Valve TR P. Velocity 219.00 cm/s RAP Estimate 10.00 mmHg RVSP 29.20 mmHg Left Ventricle The left ventricle is normal size. The left ventricular systolic function is moderately to severely reduced. There is increased LV wall thickness. There is mild to severe global hypokinesis present. The septum is asynchronous. Grade 1 diastolic dysfunction is present. LVEF is 30%. Right Ventricle Right ventricle is mildly dilated. The right ventricular systolic function is normal. Atria The left atrium size is normal. The right atrium size is normal. There is no Doppler evidence of interatrial shunt. Aortic Valve Aortic valve is mildly thickened. Mild aortic regurgitation. There is no aortic valvular stenosis. Mitral Valve The mitral valve is normal in structure. No evidence of mitral valve stenosis. Trace mitral regurgitation. Tricuspid Valve Tricuspid valve is grossly normal in structure and function. Mild tricuspid regurgitation. RVSP is 20-25 mmHg. Pulmonic Valve The pulmonary valve is normal in structure. Trace pulmonic regurgitation. Great Vessels The aortic root is normal in size. IVC is normal in size and collapses >50% with inspiration. Pericardium There is no pericardial effusion. Other Information Study Quality: Fair Conclusion Moderate to severe reduction in LV systolic function (LVEF 30%). Mild RV dilation with normal RV function. Mild AI. Electronically signed by : Tiera Lockett MD 11/26/2024 23:52:23
--- OUTSIDE RECORDS SUMMARY | 2024-11-20 08:02 | XMS_ITS | Encounter Summary ---
Author Organization Healthcare Address [address] [facility] [facility] [place] [address] Care Team Providers Care Dehydration Unit Operator Name Role Phone Bakari Perez MD Primary Care Provider [phone] Chester Mckinney MD Unavailable [phone] Reason for Visit * Reason Comments Med Refill Encounter Details Date Type Department Care Team (Late st Contact Info) Description 02/15/2022 Refill [facility] [address], [address] [place] [address] Ethan Walton MD [address] [facility] [address] [place] [address] Social History Tobacco Use Types Packs/Day Years Used Date Smoking Tobacco: Every Day Cigarettes 1 35 Smokeless Tobacco: Never Comments:trying to quit Alcohol Use Standard Drinks/Week Comments Defer 0 (1 standard drink = 0.6 oz pur e alcohol) Sex and Gender Information Value Date Recorded Sex Assigned at Not on file Legal Sex Male 7:34 PM EDT Gender Identity Not on file Sexual Orientation Not on file Occupation Industry Job Start Date Job End 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 Not on file Not on file Not on file documented as of this encounter Plan of Treatment Not on file documented as of this encounter Visit Diagnoses Not on filedocumented in this encounter Additional Health Concerns Assessment Noted Time A fall risk assessment has been complete d for the patient 03/17/2021 2:14 PM EDT documented as of this encounter Care Teams Dehydration Unit Operator Relationship Specialty Start Date End Date Bakari Perez MD [address] [place] [id number] PCP - General 12/30/20 Chester Mckinney MD [address] [address] Referring Physician 01/14/21 documented as of this encounter
--- OUTSIDE RECORDS SUMMARY | 2024-11-20 08:02 | XMS_ITS | Encounter Summary ---
Author Organization [facility] [address] [facility] [id number] Care Team Providers Care Copy Supervisor Name Role Phone Bakari Perez MD Primary Care Provider [phone] Chester Mckinney MD Unavailable [phone] Reason for Visit * Reason Comments Med Refill Encounter Details Date Type Department Care Team (Late st Contact Info) Description 05/25/2021 Refill [place] [facility] [address], [address] [place] [address] Ethan Walton MD [address] [facility] [address] [place] [address] Social History Tobacco Use Types [...] 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 Not on file Not on file Not on file documented as of this encounter Plan of Treatment Not on file documented as of this encounter Visit Diagnoses Not on filedocumented in this encounter Additional Health Concerns Assessment Noted Time A fall risk assessment has been complete d for the patient 03/17/2021 2:14 PM EDT documented as of this encounter Care Teams Copy Supervisor Relationship Specialty Start Date End Date Bakari Perez MD [address] [place] [id number] PCP - General 12/30/20 Chester Mckinney MD [address] [address] Referring Physician 01/14/21 documented as of this encounter
--- OUTSIDE RECORDS SUMMARY | 2024-11-20 08:03 | XMS_ITS | Clinical Summary ---
Author Organization Healthcare Address [address] [place] [address] Care Team Providers Care Handbook Writer Name Role Phone Bakari Perez MD Primary Care Provider [phone] Chester Mckinney MD Unavailable [phone] Allergies No known active allergies Medications Aspirin Adult Low Strength 81 MG EC tablet Take 81 mg by mouth 1 (one) time each day. 12/28/2020 Active omeprazole (PriLOSEC) [address] capsule Take 40 mg by mouth 1 (one) time each day. 12/27/2020 Active HYDROcodone-acet aminophen (Friendship) 5-325 MG tablet Take 1 tablet by mouth every 4 (four) hours if needed for severe pain. 30 tablet 02/25/2021 Active furosemide (Lasix) 40 MG tablet Take 1 tablet (40 mg total) by mouth 1 (one) time each day for 3 days. 3 tablet 02/26/2021 Active Entresto 24-26 MG tablet Take 1 tablet by mouth 2 (two) times a day. 02/28/2021 Active atorvastatin (Lipitor) 80 MG tablet Take 1 tablet (80 mg total) by mouth every night. 30 tablet 1 03/25/2021 Active apixaban (Eliquis) 5 MG tablet Take 1 tablet (5 mg total) by mouth 2 (two) times a day. 60 tablet 1 03/25/2021 Active sotalol (Betapace) 120 MG tablet Take 1 tablet (120 mg total) by mouth every 12 (twelve) hours. 60 tablet 1 03/25/2021 Active Active Problems Problem Noted Date Diagnosed Date Obesity (BMI 30-39.9) 03/17/2021 Postoperative atrial fibrillation 03/15/2021 Ventricular tachycardia 03/15/2021 Overview (03/15/2021): postop Uses LifeVest defibrillator 03/15/2021 Left ventricular diastolic dysfunction Overview (02/21/2021): Grade 2 per post- CABG intraop COLTEN Acquired dilation of left ventricle of heart Overview (03/15/2021): intra op COLTEN, EF improved 34% --> 46% MICHAEL (obstructive sleep apnea) 02/11/2021 Overview (03/15/2021): Noncompliant with c-pap Coronary artery disease 01/14/2021 Hypertension 01/14/2021 Hyperlipidemia 01/14/2021 GERD (gastroesophageal reflux disease) Ischemic cardiomyopathy 01/14/2021 Resolved Problems Problem Noted Date Diagnosed Date Resolved Date Thrombocytopenia 02/24/2021 02/25/2021 Overview (02/24/2021): likely secondary to post-op status, will continue to monitor Ventricular tachycardia 02/23/202102/09 Overview (02/23/2021): - multiple runs of monomorphic VT sustained to 200 bpm - Given lidocaine bolus 100mg x2 and placed on lidocaine drip Atrial fibrillation 02/23/2021 02/26/20 21 Overview (02/23/2021): - Afib RVR in 150s - given Amiodarone 150 bolus x4 and placed on gtt - given IV metoprolol 5mg x3 Hyponatremia 02/23/2021 02/24/2021 Overview (02/23/2021): Na+ down trending, 129 on 02/23 morning draw, likely due to fluid overload- will diurese and monitor Leukocytosis 02/22/2021 02/25/2021 Overview (02/23/2021): WBC downtrending on POD#2, will continue to monitor Fluid overload 02/22/2021 02/25/2021 Overview (02/23/2021): Likely secondary to post-op status, was net + on POD# 0. 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 Seizure 02/21/2021 02/21/2021 Overview (02/21/2021): Resolved, pt reports hx of seizure ~20 years ago, likely dt meningitis, pt was never on antiepileptic medications, has had no recurrence of seizure Status post coronary artery bypass graft 02/21/2021 03/15/2021 Overview (02/21/2021): 2v CABG performed 02/21 Acute postoperative respiratory insufficiency 02/22/2002/25/2021 Overview (02/24/2021): Maintaining high O2 sats on 2L NC, will continue to wean to RA Low cardiac output syndrome 02/21/2021 02/22/2021 Overview (02/22/2021): Pt no longer requiring ionotropes or pressors on POD#1, PA cath showing CI 2.3- 3.9 Family History Medical History Relation Name Comments Heart disease Maternal Grandfather Hypertension Maternal Grandfather Heart disease Mother Hypertension Mother Relation Name Status Comments Maternal Grandfather Mother Social History Tobacco Use Types Packs/Day Years Used Date Smoking Tobacco: Every Day Cigarettes 1 35 Smokeless Tobacco: Never Tobacco Cessation:Ready to Q uit: Yes; Counseling Given: Yes Comments:trying to quit Alcohol Use Standard Drinks/Week Comments Defer 0 (1 standard drink = 0.6 oz pur e alcohol) Sex and Gender Information Value Date Recorded Sex Assigned at Not on file Legal Sex Male 7:34 PM EDT Gender Identity Not on file Sexual Orientation Not on file Occupation Industry Job Start Date Job End Date 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 Not on file Not on file Not on file Last Filed Vital Signs Vital Sign Reading Time Taken Comments Blood Pressure 131/75 11/20/2022 10:29 AM EDT Pulse 80 11/20/2022 10:29 AM EDT Temperature 36.8 C (98.2 F) 02/25/2021 12:05 PM EDT Respiratory Rate 18 02/25/2021 12:05 PM EDT Oxygen Saturation 98% 03/17/2021 2:14 PM EDT Inhaled Oxygen Concentration - - Weight 102 kg (224 lb) 11/20/2022 10:29 AM EDT Height 167.6 cm (5' 6 ) 11/20/2022 10:29 AM EDT Body Mass Index 36.15 11/20/2022 10:29 AM EDT Plan of Treatment Health Maintenance Due Date Last Done Comments [facility]-Depression Screening 1973 [facility]-Infant/Child/Adol SDOH Screenings 1973 [facility]- SDOH Screenings 1991 [facility]-Adult SDOH Screenings 1991 [facility]-DTaP,Tdap,and Td Vaccine s (1 - Tdap) 1992 [facility]-Hepatitis B Vaccines (1 of 3 - 19+ 3-dose series) 1992 CT Colonography 2018 Colonoscopy 2018 FIT-DNA 2018 FIT 2018 FOBT 2018 Sigmoidoscopy 2018 [facility]-Colorectal Cancer Screening 2018 [facility]-Pneumococcal Vaccine: 50 + Years (1 of 1 - PCV) 2023 [facility]-Zoster Vaccines (1 of 2) 2023 [id number] Vaccine (1 - 20 24-25 season) 2024 [facility]-Influenza Vaccine (Seaso n Ended) 2025 [facility]-Diabetes: Hemoglobin A1C Discontinued 01/20/2021 HPV Vaccines Aged Out No longer eligi ble based on patient's age to complete this topic [facility]-HIB Vaccines Aged Out No longer e ligible based on patient's age to complete this topic [facility]-Hepatitis A Vaccines Aged Out No longer eligible based on patient's age to complete this topic [facility]-IPV Vaccines Aged Out No longer e ligible based on patient's age to complete this topic [facility]-Rotavirus Vaccines Aged Out No lo nger eligible based on patient's age to complete this topic Procedures Procedure Name Priority Date/Time Associated Diagnosis Comments HEMOGLOBIN A1C Routine 01/20/2021 4:39 PM EDT Coronary artery disease involving ute mountain coronary artery of ute mountain heart, unspecified whether angina present from Last 3 Months or Most Recently Relevant to Health Maintenance Results * (ABNORMAL) Hemoglobin A1c (01/20/2021 4:39 PM EDT) Hemoglobin A1c 6.1(H) <5.7 % 01/20/2021 6:54 PM EDT [facility] Blood Venous blood specimen / Unknown Venipuncture / Unknown 01/20/2021 4:39 PM EDT 01/20/2021 4:39 PM EDT Narrative [facility] - 01/20/2021 6:54 PM EDT HA1C Interpretive Data: Diagnosis of Diabetes: Diabetic > or = 6.5% Pre-diabetic 5.7 to 6.4% Non-diabetic < or = 5.6% Glycemic Targets for Type I and Type II Diabetics: Non- Adults <7.0% Adults <6.0% Children and Adolescents <7.5% Source: [place] [employer]. Standards of medical care in diabetes,2017. Diabetes Care.2017:40 (suppl 1):S1-S135. HbA1c assay performed by an ion-exchange chromatography method that is certified traceable to the DCCT. us Ethan Walton MD LAB BLOOD ORDERABLES Final R esult [facility] [address] [place] [phone] from Last 3 Months or Most Recently Relevant to Health Maintenance Insurance [employer] [facility] MEDICAID Advance Directives * Full Code (Latest Code Status on File) Date Activated Date Inactivated Comments 02/21/2021 1:11 PM 02/25/2021 5:53 PM Question Answer Comments Patient has decision-making capacity? Yes Care Teams Handbook Writer Relationship Specialty Start Date End Date Bakari Perez MD [address] [place] [id number] PCP - General 12/30/20 Chester Mckinney MD [address] [facility] [address] [place] [address] Referring Physician 01/14/21
--- NOTE | 2024-11-20 08:45 | CT_ITS ---
FINAL REPORT CLINICAL HISTORY: bnl OZZY,claudication COMPARISON: None FINDINGS: Post contrast axial imaging of the aorta and bilateral lower extremity was obtained and reviewed.This study was performed with techniques to keep radiation doses as low as reasonably achievable (ALARA). Individualized dose reduction techniques using automated exposure control or adjustment of mA and/or kV according to the patient's size were employed. The mesenteric and renal vessels are not well-seen on this examination secondary to centering. There is no evidence of aortic aneurysm. There are moderately advanced vascular calcifications in the distal aorta and iliac vessels. There is a stenosis of less than 50% in the common iliac arteries bilaterally. The internal iliac arteries are patent. Right: Moderate calcified plaque is present in the right common femoral artery. There is extensive calcification in the right superficial femoral artery, with bulky plaque in the region of the adductor canal, producing high-grade stenosis best seen on images #100 through 106 of series 3. There is near complete occlusion of the right popliteal artery secondary to calcified plaque, best seen on images 133 137 of series 3. The anterior and posterior tibial and peroneal arteries are patent to the lower leg. The anterior and posterior tibial arteries are patent to the foot. 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 There is occlusion of the mid and distal superficial femoral artery, with reconstitution at the level of the left popliteal artery. The anterior and posterior tibial and peroneal arteries are patent to the lower leg. The anterior and posterior tibial arteries are patent to the foot. Review of the remaining abdomen and pelvis demonstrates no evidence of mass or adenopathy. The portions of the pancreas, spleen, liver, and kidneys that are visualized appear unremarkable. There is no fluid collection or acute inflammatory process. IMPRESSION: Densely calcified plaque is present in the aorta iliac vessels, with less than 50% bilateral stenosis of the common iliac arteries. There is high-grade stenosis in the distal superficial femoral artery at the level of the adductor canal. There are also dense calcifications in the right popliteal artery with near occlusion. There is extensive left common femoral artery calcification, with mild aneurysmal dilatation up to 12 mm of a short segment. There is occlusion of the mid and distal superficial femoral artery with reconstitution at the level of the left popliteal artery. Reviewed, Interpreted and Dictated by Anurag Wisdom MD Transcribed by Cristela Schultz Authenticated and [facility]
[2024-11-20] MEDS: SODIUM CHLORIDE 0.9% 10ML SYR (RAD ONLY) 10 ML IV (09:06)
[2024-11-20] MEDS: IOPAMIDOL-370 (76%);100ML BOTTLE 120 ML IV (09:06)
[2024-11-20] MEDS: 0.9 % SODIUM CHLORIDE 50 ML VIAL 100 ML IV (09:06)
== END 2024-11-20 23:59 | disposition home or self-care (01) ==
LOC: RT 08:00
PROVIDERS: PCP Family Medicine; Visit Provider Physician Assistant
DX: I35.1 Nonrheumatic aortic (valve) insufficiency (principal); I70.203 Unspecified atherosclerosis of native arteries of extremities, bilateral legs; I70.8 Atherosclerosis of other arteries; I72.4 Aneurysm of artery of lower extremity; I50.20 Unspecified systolic (congestive) heart failure; I25.10 Atherosclerotic heart disease of native coronary artery without angina pectoris
CPT/HCPCS: 75635; 93306; Q9967

== ENCOUNTER 2024-12-18 12:13 | Observation (INO) | payer OTHER, SELFPAY ==
[2024-12-18] VITALS (20 sets, daily range): BP systolic 115–159; BP diastolic 55–94; PULSE 45–72; RESP 14–18; TEMP 36.7; O2SAT 93–99; BMI 35.3
--- NOTE | 2024-12-18 07:08 | IR_ITS ---
APPROVED REPORT Patient Location: Outpatient PROCEDURES Catheter placed in the abdominal aorta Abdominal aortography Repositioning the catheter in the abdominal aorta Bilateral iliofemoral runoff Catheter placement in the left popliteal artery Left popliteal artery antegrade angiogram Drug-coated balloon angioplasty of the ostial proximal mid and distal SFA extending into the proximal popliteal artery Self-expanding bare-metal stent deployment to the distal left SFA Self-expanding bare-metal stent deployment to the ostial proximal left SFA INDICATION Peripheral artery disease, Valerie claudication class III, Abnormal CAT scan, Chronically occluded left SFA extending to the left popliteal artery Informed consent was obtained prior to the procedure. COMPLICATIONS NONE Estimated Blood Loss: LESS THAN 10 ML TECHNIQUE 1% lidocaine used anesthetize right groin the right pulm artery was accessed via the central technique and a 5 German sheath was placed in the right femoral artery. A pigtail catheter was advanced to the distal abdominal aorta. This abdominal aortography was performed. The catheter was then repositioned and bilateral iliofemoral was performed. The pigtail catheter was exchanged for a rim catheter and an advantage wire was used to cannulate the left common iliac artery and extended into the left profunda femoris. The 5 German sheath was exchanged for a 45 cm destination sheath. Therapeutic heparin is administered giving a therapeutic ACT and the advantage wire was advanced into the chronically occluded left SFA. A trailblazer catheter was then placed and a loop was created at the occlusion and then used to push throughout the entire occlusion and then reenter the true lumen at the popliteal level. Catheter was placed into the left popliteal artery where left popliteal artery selective angiography was performed. Following this a 5 mm x 200 mm balloon was used to predilate the left SFA and popliteal artery at 12 laurne for 1 minute intervals multiple times. Following this a 6 mm x 250 mm drug-coated balloon was placed in the ostial proximal left SFA extending to the midportion and deployed at 5 lauren for 3 minutes. An additional 5 mm x 250 mm drug-coated balloon was placed distal to this she had still overlapping where the distal aspect of the balloon ended in the proximal left SFA. This was deployed at 10 lauren for 3 minutes. Following this a dissection was identified at Juan's canal therefore a 6 mm x 20 mm self-expanding bare-metal stent was deployed tacking back the dissection. A 7 mm x 20 mm self-expanding bare-metal stent was placed in the ostial proximal segment of the left stiff left SFA followed by an additional 7 mm x 60 mm self-expanding stent placed distal to the first 7 mm stent yet still overlapping it and then deployed. Following this a 6 mm x 40 mm balloon was deployed in the left femoral artery extending into the left SFA and throughout the stent and deployed at 14 lauren. Excellent angiograph results were obtained at the end of procedure the apparatus was removed the sheath was removed good hemostasis was achieved using manual pressure patient was transferred to the postop putting in stable condition ANGIOGRAPHIC RESULTS Is distally calcified and atheromatous with no stenosis greater than 20%. The right common iliac artery has moderate atheromatous plaque with calcification with no stenosis greater than 30 to 40%. The right internal iliac artery is patent the right external iliac artery is patent the right common femoral artery has 30% atheromatous plaque the right profunda femoris artery is widely patent the right superficial femoral artery has 30% proximal stenoses with multiple small calcified eccentric plaques extending into the vessel. At Juan's canal there is an additional eccentric 40 to 50% calcified plaque. The right popliteal artery is patent. The right anterior tibialis artery is widely patent the right peroneal artery and right posterior tibialis artery are proximally occluded but collateralized at mid segment Left common iliac artery is atheromatous and patent with 30% stenosis the left internal iliac artery is patent the left external iliac artery has a proximal 20% calcified stenosis the left common femoral artery has an eccentric 30% calcified stenosis the left profunda femoris artery is widely patent the left superficial femoral artery is proximally occluded and occluded throughout its entire course and reconstitutes at Juan's canal. The left popliteal artery is patent and gives rise to the anterior and posterior tibialis artery and peroneal artery all of which are patent and provide slow three-vessel runoff in the left foot IMPRESSION Peripheral artery disease as described above Successful drug-coated balloon angioplasty of the chronically occluded left SFA 100% occlusion reduced to less than 10% with drug-coated balloon angioplasty followed by 2 contiguous bare-metal self-expanding stents in the ostial proximal segment of the left SFA and additional bare-metal self-expanding stent deployment in Juan's canal at the junction between the left SFA and the left popliteal Single-vessel runoff below the knee on the right Three-vessel runoff below the knee on the left following revascularization PLAN 1. Xarelto 2.5 twice daily plus aspirin 81 mg daily 2. Avoidance of tobacco products 3. Monitor patient overnight given manual pressure on the right groin and 6 German sheath 4. LDL less than 55 achieved with high intensity statin 5. Medical management for remaining coronary artery disease and peripheral artery disease Electronically signed by : Chester Mckinney MD 12/18/2024 12:39:39
[2024-12-18 09:17] LABS: Hematocrit 45.9 % (42.0-52.0); Hemoglobin 15.7 g/dL (14.1-18.0); Immature Granulocytes % 0.4 %; Mean Corpuscular HGB Conc 34.2 g/dL (31.8-35.4); Mean Corpuscular Hemoglobin 32.8 pg (27.0-31.2); Mean Corpuscular Volume 95.8 fl (80-94); Nucleated Red Blood Cells % 0 %; Platelet Count 187 K/mm3 (142-424); Red Blood Count 4.79 M/mm3 (4.60-6.20); Red Cell Distribution Width-SD 43.0 fL; White Blood Count 9.0 K/mm3 (4.8-10.8)
[2024-12-18 09:31] LABS: Anion Gap 14.9 mEq/L (5-15); Blood Urea Nitrogen 12 mg/dl (9-20); Calcium 9.6 mg/dl (8.4-10.2); Carbon Dioxide 28 mmol/L (22.0-30.0); Chloride 101 mmol/L (98-107); Creatinine Clearance Estimated 153 mL/min (50-200); Creatinine,Serum 0.80 mg/dl (0.66-1.25); Estimated Glomerular Filt Rate 102 ml/min (>60); GFR (African American) 123 ML/MIN (>60); Glucose 149 mg/dl (74-100); Potassium 3.9 mmoL/L (3.5-5.1); Sodium 140 mmol/L (136-145)
[2024-12-18] MEDS: HEPARIN 1,000 UNITS/500ML NS (CATH LAB) 3000 UNIT IV (10:22)
[2024-12-18] MEDS: 0.9 % SODIUM CHLORIDE 500 ML 25 ML IV (10:22)
[2024-12-18] MEDS: FENTANYL 100MCG/2ML VIAL 50 MCG IV (10:23)
[2024-12-18] MEDS: MIDAZOLAM HCL 1MG/ML 5ML VIAL 1 MG IV (10:23)
[2024-12-18] MEDS: LIDOCAINE 1% 10ML MDV 10 ML IJ (10:23)
[2024-12-18] MEDS: HEPARIN 1,000 UNITS/ML 10ML VIAL (CATH LAB) 5000 UNIT IV (11:12)
[2024-12-18] MEDS: PROTAMINE SULFATE 50MG/5ML VIAL (CATH LAB) 50 MG IV (11:41)
--- NOTE | 2024-12-18 12:38 | HMH.PHAINT1 ---
Pharmacy Intervention Comments: HOME MEDICATION LIST VERIFIED USING LIST FROM OUTPATIENT PHARMACY
[2024-12-18] MEDS: IOPAMIDOL-250 (51%) 100ML BOT 310 ML IV (12:47)
[2024-12-18 12:49] LABS: CATHL Activated Clotting Time 291 SEC (74-125)
--- NOTE | 2024-12-18 16:04 | P.HP_ITS ---
<Statement entered by Agustin Leong MD - 12/22/24 16:18> Personally evaluated patient and agree with plan of care as outlined by the [employer] DISTRICT MANAGER. History of Present Illness *Admission Date: 12/18/24 *Reason for visit:: Status post bolus dania aortogram *History of present illness: Mr. Teresa is a 49-year-old male who came in for an outpatient bolus dania aortogram to assess femoral arteries. He has a primary medical history of PAD, HFrEF, unstable angina, NSTEMI, AICD placement, cardiomyopathy, hyperlipidemia, paroxysmal atrial fibrillation, status post CABG, CAD. Patient received drug- coated balloon angioplasty of the chronically occluded left SFA reducing occlu lefty from 100% to 10%, followed by 2 continuous bare-metal self-expanding stents. Patient tolerated the procedure well and hospital medicine was consulted by Dr. Mckinney for admission for high risk of bleeding, monitoring of next day labs, and medical management. [facility] Disclaimer: The information contained in this section may have been updated after the patient was seen, as this information can be updated by other users. Medical History PAD (peripheral artery disease) Abnormal ankle brachial index (OZZY) Claudication Edema HFrEF (heart failure with reduced ejection fraction) Fatigue Surgical History AICD (automatic cardioverter/defibrillator) present S/P CABG (coronary artery bypass graft) Social History Smoking Status: Former smoker tobacco type: cigarettes packs per day: 1 second hand exposure: No alcohol intake: never current occupational status: employed Travel in the last 8 weeks?: Inside the [place] household members: none housing: house current occupational exposures/hazards: No Have you lived/traveled outside [place] in past 30 days?: No Contact w/someone who lives/traveled outside US past 30 days?: No Exposure to someone with infectious disease in past 14 days?: No Do you have a fever (greater than 100.4 F or 38 C)?: No Have you tested positive for COVID-19?: No Exposed to someone with COVID-19 in past 14 days?: No Do you have a sore throat?: No Do you have a cough?: No Do you have any weakness?: No Do you have any diarrhea?: No Are you experiencing any unusual bleeding?: No Do you have any muscle aches/pain?: No Do you have any abdominal pain?: No Are you experiencing loss of taste or smell?: No Other Medical History Have you received the Flu Vaccine for this season: No Have you received the Pneumonia Vaccine: No Review of Systems Review of Systems Review of systems:: pertinent systems reviewed and negative unless documented be low Constitutional Constitutional: Denies weakness ENT Ears, Nose, Mouth, and Throat: Denies vertigo *Cardiovascular Cardiovascular: Denies chest pain, Denies dyspnea and Denies leg edema *Respiratory Respiratory: Denies dyspnea *Gastrointestinal Gastrointestinal: Denies abdominal pain and Denies dyspepsia *Neurologic Neurologic: Denies vertigo and Denies weakness Meds Home Medications and Allergies Home Medications ?Medication ?Instructions ?Recorded ?Confirmed ?Type varenicline tartrate 0.5 mg tablet 0.5 mg PO DAILY 12/18/24 History (Chantix) rosuvastatin 20 mg tablet 20 mg PO DAILY #30 tabs 11/0912/18/24 Rx clopidogrel 75 mg tablet (Plavix) 75 mg PO DAILY 30 da ys #30 tabs 12/18/24 Rx metoprolol succinate 50 mg 50 mg PO DAILY 12/18/2404/04 History tablet,extended release 24 hr omeprazole 40 mg capsule,delayed 40 mg PO DAILY 12/18/24 History release rivaroxaban 20 mg tablet (Xarelto) 20 mg PO QPMWITHMEA L 12/18/24 12/18/24 History sacubitril 49 mg-valsartan 51 mg 1 tab PO BID 12/18/24 12/18/24 History tablet (Entresto) New Prescriptions to Start Prescriptions: clopidogrel [Plavix] Chester Mckinney Allergies Allergy/AdvReac Type Severity Reaction Status Date / Time No Known Allergies Allergy Verified 12/18/24 09:21 Exam Data for Last 24 hours Vital signs and Labs for Last 24 Hours: Pulse Resp BP Pulse Ox O2 Del Method O2 Flow Rate 60 18 147/71 H 99 Room Air 2 12/18/24 14:50 12/18/24 14:50 12/18/24 14:50 12/18/24 14:50 12/18/24 14:50 12/18/24 13:20 Laboratory Results - last 24 hr 12/18/24 09:10: WBC 9.0, RBC 4.79, Hgb 15.7, Hct 45.9, MCV 95.8 H, MCH 32.8 H, MCHC 34.2, RDW 12.2, Plt Count 187, MPV 10.5 H, Neut % (Auto) 58.4, Lymph % (Auto) 30.0, [place] % (Auto) 8.0, Eos % (Auto) 2.2, Baso % (Auto) 1.0, Neut # (Auto) 5.3, Lymph # (Auto) 2.7, [place] # (Auto) 0.7, Eos # (Auto) 0.2, Baso # (Auto) 0.1, Sodium 140, Potassium 3.9, Chloride 101, Carbon Dioxide 28, Anion Gap 14.9, BUN 12, Creatinine 0.80, Estimated Creat Clear 153, Estimated GFR 102, Est GFR ( Amer) 123, Glucose 149 H, Calcium 9.6 12/18/24 11:11: Activated Clotting Time 291 H* I & O for Last 24 hours: Intake & Output 12/15/24 12/16/24 12/17/24 12/18/24 23:59 23:59 23:59 23:59 Output Total 400 / 400 Balance -400 / -400 Weight 99.337 kg Constitutional Constitutional: no acute distress and cooperative *Routine HEENT Exam Head: Present normocephalic Eye: Present EOMI ENT: Present mucous membranes moist *Routine Neck Exam Neck: Present supple and full ROM; Absent JVD *Routine Respiratory Exam Respiratory: Present CTA bilaterally, normal respiratory effort, able to speak in complete sentences and symmetric chest movement *Routine Cardiovascular Exam Cardiovascular: Present RRR; Absent murmur Comments: AICD in place. Patient post CABG. *Routine Abdominal Exam Abdominal: Present soft and normoactive bowel sounds; Absent tenderness or distended *Routine Rectal Exam Rectal:: deferred *Routine Genitalia Exam Genitalia:: deferred *Routine Extremities Exam Extremities: Present normal capillary refill; Absent edema *Routine Skin Exam Skin: Present intact and dry *Routine Neurological Exam Neurological: Present alert, oriented X3 and normal speech Assessment and Plan *Assessment and plan (1) PAD (peripheral artery disease): Status: Acute Category: Medical Code(s): I73.9 - Peripheral vascular disease, unspecified (2) Abnormal ankle brachial index (OZZY): Status: Acute Category: Medical Code(s): R68.89 - Other general symptoms and signs (3) HFrEF (heart failure with reduced ejection fraction): Status: Acute Category: Medical Code(s): I50.20 - Unspecified systolic (congestive) heart failure (4) CAD (coronary artery disease): Status: Chronic Qualifiers: Coronary Disease-Associated Artery/Lesion type: bypass graft [place] vs. transplanted heart: [place] heart Associated angina: without angina Qualified Code(s): I25.810 - Atherosclerosis of coronary artery bypass graft(s) without angina pectoris Category: Medical Code(s): I25.10 - Atherosclerotic heart disease of [place] coronary artery without angina pectoris Plan Mr. Teresa is a 49-year-old male who was admitted to the medical surgical floor for monitoring after a runoff. He received drug-coated balloon angioplasty and 2 stents to his left SFA. Cardiology consulted the hospital medicine team for admission and I agreed to admit the patient for further monitoring and bleeding risk. Plan of care as follows: #PAD #Abnormal OZZY #HFrEF #CAD ?Patient supine lying in the bed. Patient status post run off, dressing is clean dry and intact. Patient does not complain of any pain. Patient vital signs within normal limits. ?Restart patient's home medication Plavix 75, metoprolol 50 mg, Xarelto 20 mg, rosuvastatin 20 mg, Entresto 1 tab twice daily. ?Cardiology consulted, CBC, CMP, PT/INR, lipid panel ordered for a.m. ?Patient had echo 11/20/2024 showed LVEF 30%. Patient has AICD in place. Full code Cardiac diet Xarelto VTE
--- NOTE | 2024-12-18 18:22 | PC.NURSE ---
Pt A&Ox4. Vital signs stable tolerating room air. Pt had a heart cath today. Right femoral site with gauze and tegaderm c/d/i. Pt can sit up in bed at 1830 and stand at 1930. Pt resting comfortably with no further needs voiced at this time. Call light within reach.
--- NOTE | 2024-12-18 18:36 | PC.NURSE ---
Pt has been educated by lab manager and this RN on the need to lie flat until 1830 and not stand until 1930 d/t risk of bleeding. pt has been very frustrated and verbalizes unwillingness to comply. pt has stated multiple times I'm not going to bleed and states he is Going to get up and get dressed before 1930 even after being educated multiple times this shift about risks.
[2024-12-18] MEDS: SACUBITRIL/VALSARTAN 24-26MG TABLET 2 EACH PO (20:14)
[2024-12-19] VITALS: BP 121/63; PULSE 70; RESP 16; TEMP 36.5; O2SAT 94
[2024-12-19 00:06] VITALS: PULSE 67
[2024-12-19 04:00] VITALS: BP 115/52; PULSE 72; PULSE 82; RESP 16; TEMP 36.4; O2SAT 93; BMI 26.8
[2024-12-19 06:23] LABS: Hematocrit 45.1 % (42.0-52.0); Hemoglobin 15.7 g/dL (14.1-18.0); Immature Granulocytes % 0.3 %; Mean Corpuscular HGB Conc 34.8 g/dL (31.8-35.4); Mean Corpuscular Hemoglobin 32.8 pg (27.0-31.2); Mean Corpuscular Volume 94.4 fl (80-94); Nucleated Red Blood Cells % 0 %; Platelet Count 170 K/mm3 (142-424); Red Blood Count 4.78 M/mm3 (4.60-6.20); Red Cell Distribution Width-SD 42.2 fL; White Blood Count 10.2 K/mm3 (4.8-10.8)
[2024-12-19 06:38] LABS: Alanine Aminotransferase 22 U/L (12-78); Albumin Level 3.7 g/dl (3.5-5.0); Albumin/Globulin Ratio 1.1 (1.1-1.8); Alkaline Phosphatase 74 U/L (38-126); Anion Gap 11.7 mEq/L (5-15); Aspartate Amino Transferase 27 U/L (17-59); Bilirubin,Total 0.7 mg/dl (0.2-1.3); Blood Urea Nitrogen 8 mg/dl (9-20); Calcium 8.8 mg/dl (8.4-10.2); Carbon Dioxide 27 mmol/L (22.0-30.0); Chloride 100 mmol/L (98-107); Creatinine Clearance Estimated 117 mL/min (50-200); Creatinine,Serum 0.80 mg/dl (0.66-1.25); Estimated Glomerular Filt Rate 102 ml/min (>60); GFR (African American) 123 ML/MIN (>60); Globulin 3.3 g/dL (1.3-3.2); Glucose 167 mg/dl (74-100); Magnesium 1.7 mg/dl (1.6-2.3); Potassium 3.7 mmoL/L (3.5-5.1); Sodium 135 mmol/L (136-145); Total Protein,Serum 7.0 g/dl (6.3-8.2)
[2024-12-19 06:41] LABS: Anion Gap 12.7 mEq/L (5-15); Blood Urea Nitrogen 8 mg/dl (9-20); Calcium 8.9 mg/dl (8.4-10.2); Carbon Dioxide 27 mmol/L (22.0-30.0); Chloride 99 mmol/L (98-107); Creatinine Clearance Estimated 117 mL/min (50-200); Creatinine,Serum 0.80 mg/dl (0.66-1.25); Estimated Glomerular Filt Rate 102 ml/min (>60); GFR (African American) 123 ML/MIN (>60); Glucose 166 mg/dl (74-100); Potassium 3.7 mmoL/L (3.5-5.1); Sodium 135 mmol/L (136-145)
[2024-12-19 08:00] VITALS: BP 134/64; PULSE 70; PULSE 77; RESP 20; TEMP 36.8; O2SAT 94
[2024-12-19] MEDS: MAGNESIUM SULFATE IN WATER 2 GM/50 ML PIGGYBACK IV ×2 (09:47→10:50)
[2024-12-19] MEDS: SACUBITRIL/VALSARTAN 24-26MG TABLET 2 EACH PO (09:48)
[2024-12-19] MEDS: CLOPIDOGREL 75MG TAB 75 MG PO (09:48)
[2024-12-19] MEDS: METOPROLOL SUCCINATE XL 50MG TABLET 50 MG PO (09:48)
[2024-12-19] MEDS: ASPIRIN EC 81MG TABLET 81 MG PO (09:49)
--- NOTE | 2024-12-19 10:21 | P.DS_ITS ---
<Statement entered by Agustin Leong MD - 12/22/24 16:18> Personally evaluated patient and agree with plan of care as outlined by the [employer]OT[employer] CASTING MACHINE SETUP OPERATOR. General Admission date:: 12/18/24 Discharge date: 12/19/24 HPI HPI HPI: Mr. Teresa is a 49-year-old male who came in for an outpatient bolus dania aortogram to assess femoral arteries. He has a primary medical history of PAD, HFrEF, unstable angina, NSTEMI, AICD placement, cardiomyopathy, hyperlipidemia, paroxysmal atrial fibrillation, status post CABG, CAD. Patient received drug- coated balloon angioplasty of the chronically occluded left SFA reducing occlusion from 100% to 10%, followed by 2 continuous bare-metal self-expanding stents. Patient tolerated the procedure well and hospital medicine was consulted by Dr. Mckinney for admission for high risk of bleeding, monitoring of next day labs, and medical management. Hospital Course Hospital Course Hospital Course: Mr. Teresa is a 49-year-old male who was admitted to the medical surgical floor for monitoring after a runoff. He received drug-coated balloon angioplasty and 2 stents to his left SFA. Cardiology consulted the hospital medicine team for admission and I agreed to admit the patient for further monitoring and bleeding risk. Care was as follows: #PAD #Abnormal OZZY #HFrEF #CAD ?Patient had no complications postprocedure. Resting in bed comfortably this morning. States that he is feeling well. Denies pain. ?Restart patient's home medication Metoprolol 50 mg, Xarelto 20 mg, rosuvastatin 20 mg, Entresto 1 tab twice daily. Start DAPT, Plavix 75 mg and aspirin 81 mg daily. Discussed the importance of DAPT with patient. ?Patient was also started on Jardiance 10 mg daily. ?Lab work unremarkable this morning. Kidney function stable, creatinine 0.8. ?Patient had echo 11/20/2024 showed LVEF 30%. Patient has AICD in place. ?Cleared by cardiology for discharge, and outpatient follow-up. Exam Data for Last 24 hours Vital signs and Labs for Last 24 Hours: Temp Pulse Resp BP Pulse Ox O2 Del Method O2 Flow Rate 98.3 F 77 20 134/64 94 L Room Air 2 12/19/24 08:00 12/19/24 08:00 12/19/24 08:00 12/19/24 08:00 12/19/24 08:00 12/19/24 08:00 12/18/24 13:20 Laboratory Results - last 24 hr 12/18/24 11:11: Activated Clotting Time 291 H* 12/19/24 05:24: WBC 10.2, RBC 4.78, Hgb 15.7, Hct 45.1, MCV 94.4 H, MCH 32.8 H, MCHC 34.8, RDW 12.0, Plt Count 170, MPV 11.2 H, Neut % (Auto) 71.4, Lymph % (Auto) 18.7, [place] % (Auto) 7.4, Eos % (Auto) 1.5, Baso % (Auto) 0.7, Neut # (Auto) 7.3, Lymph # (Auto) 1.9, [place] # (Auto) 0.8, Eos # (Auto) 0.2, Baso # (Auto) 0.1, Sodium 135 L 12/19/24 05:24: Sodium 135 L, Potassium 3.7 12/19/24 05:24: Potassium 3.7, Chloride 99 12/19/24 05:24: Chloride 100, Carbon Dioxide 27 12/19/24 05:24: Carbon Dioxide 27, Anion Gap 12.7 12/19/24 05:24: Anion Gap 11.7, BUN 8 L D 12/19/24 05:24: BUN 8 L, Creatinine 0.80 12/19/24 05:24: Creatinine 0.80, Estimated Creat Clear 117 12/19/24 05:24: Estimated Creat Clear 117, Estimated GFR 102 12/19/24 05:24: Estimated GFR 102, Est GFR ( Amer) 123 12/19/24 05:24: Est GFR ( Amer) 123, Glucose 166 H 12/19/24 05:24: Glucose 167 H, Calcium 8.9 12/19/24 05:24: Calcium 8.8, Magnesium 1.7, Total Bilirubin 0.7, AST 27, ALT 22, Alkaline Phosphatase 74, Total Protein 7.0, Albumin 3.7, Globulin 3.3 H, Albumin/Globulin Ratio 1.1 I & O for Last 24 hours: Intake & Output 12/16/24 12/17/24 12/18/24 12/19/24 23:59 23:59 23:59 23:59 Intake Total 120 / 120 240 / 240 Output Total 1050 / 1050 Balance -930 / -930 240 / 240 Weight 99.337 kg 75.795 kg Constitutional Constitutional: no acute distress and cooperative *Routine HEENT Exam Head: Present normocephalic Eye: Present EOMI and PERRL ENT: Present mucous membranes moist *Routine Neck Exam Neck: Present supple and full ROM; Absent JVD *Routine Respiratory Exam Respiratory: Present CTA bilaterally, normal respiratory effort, able to speak in complete sentences and symmetric chest movement *Routine Cardiovascular Exam Cardiovascular: Present RRR; Absent murmur *Routine Abdominal Exam Abdominal: Present soft and normoactive bowel sounds; Absent tenderness or distended *Routine Rectal Exam Patient deferred: visual exam *Routine Exam Patient deferred: penile exam *Routine Extremities Exam Extremities: Present full ROM; Absent edema *Routine Skin Exam Skin: Present intact and dry Comments: Right groin surgical site clean dry and intact *Routine Neurological Exam Neurological: Present alert, oriented X3 and normal speech Results Data Completed and Pending Labs on day of discharge: Labs from last 24 hours 12/19/24 12/19/24 12/19/24 05:24 05:24 05:24 WBC RBC Hgb Hct MCV MCH MCHC RDW Plt Count MPV Neut % (Auto) Lymph % (Auto) [place] % (Auto) Eos % (Auto) Baso % (Auto) Neut # (Auto) Lymph # (Auto) [place] # (Auto) Eos # (Auto) Baso # (Auto) Activated Clotting Time Sodium Potassium Chloride Carbon Dioxide Anion Gap BUN Creatinine Estimated Creat Clear Estimated GFR Est GFR ( Amer) 123 Glucose 167 H 166 H Calcium 8.8 8.9 Magnesium 1.7 Total Bilirubin 0.7 AST 27 ALT 22 Alkaline Phosphatase 74 Total Protein 7.0 Albumin 3.7 Globulin 3.3 H Albumin/Globulin Ratio 1.1 12/19/24 12/19/24 12/19/24 05:24 05:24 05:24 WBC RBC Hgb Hct MCV MCH MCHC RDW Plt Count MPV Neut % (Auto) Lymph % (Auto) [place] % (Auto) Eos % (Auto) Baso % (Auto) Neut # (Auto) Lymph # (Auto) [place] # (Auto) Eos # (Auto) Baso # (Auto) Activated Clotting Time Sodium Potassium Chloride Carbon Dioxide Anion Gap BUN Creatinine 0.80 Estimated Creat Clear 117 117 Estimated GFR 102 102 Est GFR ( Amer) 123 Glucose Calcium Magnesium Total Bilirubin AST ALT Alkaline Phosphatase Total Protein Albumin Globulin Albumin/Globulin Ratio 12/19/24 12/19/24 12/19/24 05:24 05:24 05:24 WBC RBC Hgb Hct MCV MCH MCHC RDW Plt Count MPV Neut % (Auto) Lymph % (Auto) [place] % (Auto) Eos % (Auto) Baso % (Auto) Neut # (Auto) Lymph # (Auto) [place] # (Auto) Eos # (Auto) Baso # (Auto) Activated Clotting Time Sodium Potassium Chloride Carbon Dioxide 27 Anion Gap 11.7 12.7 BUN 8 L 8 L D Creatinine 0.80 Estimated Creat Clear Estimated GFR Est GFR ( Amer) Glucose Calcium Magnesium Total Bilirubin AST ALT Alkaline Phosphatase Total Protein Albumin Globulin Albumin/Globulin Ratio 12/19/24 12/19/24 12/19/24 05:24 05:24 05:24 WBC RBC Hgb Hct MCV MCH MCHC RDW Plt Count MPV Neut % (Auto) Lymph % (Auto) [place] % (Auto) Eos % (Auto) Baso % (Auto) Neut # (Auto) Lymph # (Auto) [place] # (Auto) Eos # (Auto) Baso # (Auto) Activated Clotting Time Sodium 135 L Potassium 3.7 3.7 Chloride 100 99 Carbon Dioxide 27 Anion Gap BUN Creatinine Estimated Creat Clear Estimated GFR Est GFR ( Amer) Glucose Calcium Magnesium Total Bilirubin AST ALT Alkaline Phosphatase Total Protein Albumin Globulin Albumin/Globulin Ratio 12/19/24 12/18/24 05:24 11:11 WBC 10.2 RBC 4.78 Hgb 15.7 Hct 45.1 MCV 94.4 H MCH 32.8 H MCHC 34.8 RDW 12.0 Plt Count 170 MPV 11.2 H Neut % (Auto) 71.4 Lymph % (Auto) 18.7 [place] % (Auto) 7.4 Eos % (Auto) 1.5 Baso % (Auto) 0.7 Neut # (Auto) 7.3 Lymph # (Auto) 1.9 [place] # (Auto) 0.8 Eos # (Auto) 0.2 Baso # (Auto) 0.1 Activated Clotting Time 291 H* Sodium 135 L Potassium Chloride Carbon Dioxide Anion Gap BUN Creatinine Estimated Creat Clear Estimated GFR Est GFR ( Amer) Glucose Calcium Magnesium Total Bilirubin AST ALT Alkaline Phosphatase Total Protein Albumin Globulin Albumin/Globulin Ratio DS: Diagnosis Discharge Diagnosis (1) PAD (peripheral artery disease): Status: Acute Code(s): I73.9 - Peripheral vascular disease, unspecified (2) Abnormal ankle brachial index (OZZY): Status: Acute Code(s): R68.89 - Other general symptoms and signs (3) HFrEF (heart failure with reduced ejection fraction): Status: Acute Code(s): I50.20 - Unspecified systolic (congestive) heart failure (4) CAD (coronary artery disease): Status: Chronic Code(s): I25.10 - Atherosclerotic heart disease of [place] coronary artery without angina pectoris Qualifiers: Associated angina: without angina Coronary Disease-Associated Artery/Lesion type: bypass graft [place] vs. transplanted heart: [place] heart Qualified Code(s): I25.810 - Atherosclerosis of coronary artery bypass graft(s) without angina pectoris Meds Home Medications and Allergies Home Medications ?Medication ?Instructions ?Recorded ?Confirmed ?Type varenicline tartrate 0.5 mg tablet 0.5 mg PO DAILY 12/18/24 History (Chantix) rosuvastatin 20 mg tablet 20 mg PO DAILY #30 tabs 11/0912/18/24 Rx clopidogrel 75 mg tablet (Plavix) 75 mg PO DAILY 30 da ys #30 tabs 12/18/24 Rx metoprolol succinate 50 mg 50 mg PO DAILY 12/18/2404/04 History tablet,extended release 24 hr omeprazole 40 mg capsule,delayed 40 mg PO DAILY 12/18/24 History release rivaroxaban 20 mg tablet (Xarelto) 20 mg PO QPMWITHMEA L 12/18/24 12/18/24 History sacubitril 49 mg-valsartan 51 mg 1 tab PO BID 12/18/24 12/18/24 History tablet (Entresto) aspirin 81 mg capsule 81 mg PO DAILY #30 caps 12/09 07/05 Rx empagliflozin 10 mg tablet 10 mg PO DAILY #30 tabs 05/05 Rx (Jardiance) New Prescriptions to Start Prescriptions: aspirin Bria Pool clopidogrel [Plavix] Chester Mckinney empagliflozin [Jardiance] Hill,Bria Allergies Allergy/AdvReac Type Severity Reaction Status Date / Time No Known Allergies Allergy Verified 12/18/24 09:21 Discharge Plan Disposition Patient Disposition: Home, Self-Care Condition: Fair Follow up Plan Follow up with: Carl Mercedes MD [Primary Care Provider, Medical] - 12/23/24 8:30 am Chester Mckinney MD [Staff Physician, Cardiology] - 12/25/24 9:30 am Prescriptions/Medication Reconciliation: New clopidogrel [Plavix] 75 mg Tablet 75 mg PO DAILY 30 Days Qty: 30 6RF aspirin 81 mg capsule 81 mg PO DAILY Qty: 30 0RF Jardiance 10 mg tablet 10 mg PO DAILY Qty: 30 0RF Continued rosuvastatin 20 mg tablet 20 mg PO DAILY Qty: 30 2RF varenicline tartrate [Chantix] 0.5 mg tablet 0.5 mg PO DAILY Rx Instructions: administer on days 1, 2, and 3 of therapy metoprolol succinate 50 mg tablet extended release 24 hr 50 mg PO DAILY omeprazole 40 mg capsule,delayed release(DR/EC) 40 mg PO DAILY Xarelto 20 mg tablet 20 mg PO QPMWITHMEAL Entresto 49-51 mg tablet 1 tab PO BID Problem Reconciliation Problems Reviewed?: Yes Patient Discharge Instructions ACTIVITY: Continue current activity DIET: cardiac Patient Instructions: DI for Peripheral Vascular (Arterial) Disease, DI for Surgical Site Infection, DI for Moderate Sedation Print Language: [place] Providers Primary Care Provider: Carl Mercedes Admit Provider: Agustin Leong Attending Provider: Agustin Leong
--- NOTE | 2024-12-22 10:41 | SW/DCPLANNER ---
Spoke with patient on the phone. Patient stated that he is doing good just sore from his heart cath. Patient stated that he is aware of his upcoming appointments. Patient stated that he was able to get some of his medicine picked up but not sure about his Jardiance. Patient stated that he has no concerns or questions at this time. Melonie Romero
== END 2024-12-19 11:54 | disposition home or self-care (01) ==
LOC: 2ND 12:15
PROVIDERS: Internal Medicine; Admitting Provider Student in an Organized Health Care Education/Training Program; PCP Family Medicine; Visit Provider Student in an Organized Health Care Education/Training Program
DX: I70.219 Atherosclerosis of native arteries of extremities with intermittent claudication, unspecified extremity (principal); R93.1 Abnormal findings on diagnostic imaging of heart and coronary circulation; I25.810 Atherosclerosis of coronary artery bypass graft(s) without angina pectoris; E78.2 Mixed hyperlipidemia; R68.89 Other general symptoms and signs; I48.91 Unspecified atrial fibrillation; I42.9 Cardiomyopathy, unspecified; I50.21 Acute systolic (congestive) heart failure; I25.2 Old myocardial infarction; Z95.810 Presence of automatic (implantable) cardiac defibrillator; Z95.1 Presence of aortocoronary bypass graft; Z95.5 Presence of coronary angioplasty implant and graft; Z79.01 Long term (current) use of anticoagulants; Z79.02 Long term (current) use of antithrombotics/antiplatelets; Z79.899 Other long term (current) drug therapy; Z87.891 Personal history of nicotine dependence
CPT/HCPCS: 96361 ×2; 96374; 96375 ×2; 96376 ×2; 36415; 37226; 80048; 80053; 83735; 85025; 85347; 99152; 99153; C1725; C1760; C1766; C1769; C1876; C1894; G0378; J1200; J1644; J2003; J2720; J3010; J3475; J7040; Q9966